=== PATIENT | female | born 1950 | race Caucasian/White ===

== ENCOUNTER 2019-06-26 15:35 | Emergency (ER) | payer BC, MEDICARE ==
[2019-06-26 15:51] VITALS: RESP 18
[2019-06-26] MEDS ORDERED: KETOROLAC 30 MG/ML 1 ML VIAL IM STA (16:49)
--- NOTE | 2019-06-26 17:39 | XR ---
EXAMINATION TYPE: XR knee complete RT DATE OF EXAM: 06/26/2019 COMPARISON: NONE HISTORY: Knee pain TECHNIQUE: 3 views FINDINGS: There is spurring on the superior patella. There is no sign of joint effusion. Joint spaces are fairly normal. IMPRESSION: Mild spurring. No fracture seen.
--- NOTE | 2019-06-26 18:00 | ED ---
General Adult HPI - General Chief complaint: Extremity Injury, Lower Stated complaint: Leg pain Time Seen by Provider: 06/26/19 15:53 Source: patient Mode of arrival: wheelchair Limitations: no limitations - History of Present Illness Initial comments: Patient is 69-year-old female presenting to emergency Department with a chief complaint of right leg pain. Patient reports receiving previous cortisone shots in the right knee due to osteoarthritis. Patient reports the pain started approximately one week ago along the lateral aspect of the right knee and radiates distally to the foot. Patient denies any trauma to the knee. Patient denies any edema, erythema or skin discoloration. Patient denies any numbness or tingling. Patient denies any shortness of breath, nausea, vomiting, headache, chest pain, chest tightness. Patient denies recent prolonged periods of activity, exogenous estrogen use, chemotherapy. - Related Data Previous Rx's Medication Instructions Recorded Acetaminophen [Tylenol Extra 500 mg PO Q8HR #30 tablet 06/26/19 Strength] Ibuprofen [Motrin] 600 mg PO Q8HR PRN #30 tab 06/26/19 Allergies Allergy/AdvReac Type Severity Reaction Status Date / Time No Known Allergies Allergy Verified 06/26/19 15:47 Review of Systems ROS Statement: Those systems with pertinent positive or pertinent negative responses have been documented in the HPI. ROS Other: All systems not noted in ROS Statement are negative. Past Medical History Past Medical History: Thyroid Disorder History of Any Multi-Drug Resistant Organisms: None Reported Past Surgical History: Appendectomy, Hysterectomy, Tonsillectomy Past Psychological History: Depression Smoking Status: Never smoker Past Alcohol Use History: None Reported Past Drug Use History: None Reported General Exam Limitations: no limitations General appearance: alert, in no apparent distress Head exam: Present: atraumatic, normocephalic, normal inspection Eye exam: Present: normal appearance, PERRL, EOMI Pupils: Present: normal accommodation ENT exam: Present: normal exam, mucous membranes moist, normal external ear exam Neck exam: Present: normal inspection, full ROM Respiratory exam: Present: normal lung sounds bilaterally Cardiovascular Exam: Present: regular rate, normal rhythm, normal heart sounds Extremities exam: Present: normal inspection (No skin discoloration or temperature difference noted between bilateral lower shrubberies), tenderness (Tenderness along the medial aspect of the right knee and circumferentially along the right lower leg), calf tenderness (Right), other (+2 dorsalis pedis and posterior tibialis). Absent: full ROM (Limited range of motion in right knee due to pain) Back exam: Present: normal inspection, full ROM Neurological exam: Present: alert, oriented X3 Psychiatric exam: Present: normal affect, normal mood Skin exam: Present: warm, intact, normal color Course Vital Signs 06/26/19 06/26/19 15:47 18:13 Temperature 97.8 F 98.0 F Pulse Rate 69 61 Respiratory 18 18 Rate Blood Pressure 126/74 122/78 O2 Sat by Pulse 99 98 Oximetry Medical Decision Making - Medical Decision Making Patient is a 69-year-old male presenting to emergency Department with chief complaint of right knee pain. Ultrasound is negative for DVT. X-ray showing mild spurring in the right knee. Patient already has osteoarthritis and the symptoms appear to be an exacerbation of it. Patient advised to alternate between Tylenol and ibuprofen for pain control. Patient advised to follow-up with primary care for outpatient management. Strict return parameters were thoroughly discussed the patient was in the setting agreeable. Case discussed with physician. Disposition Clinical Impression: Knee pain, right Disposition: HOME SELF-CARE Condition: Stable Instructions (If sedation given, give patient instructions): Knee Pain (ED) Additional Instructions: Alternate between Tylenol and ibuprofen for pain control. Please follow up with primary care. Please return to emergency department if symptoms worsen. Prescriptions: Ibuprofen [Motrin] 600 mg PO Q8HR PRN #30 tab PRN Reason: Pain Acetaminophen [Tylenol Extra Strength] 500 mg PO Q8HR #30 tablet Is patient prescribed a controlled substance at d/c from ED?: No Referrals: Andrez Dasilva DO [Primary Care Provider] - 1-2 days Time of Disposition: 18:09
--- NOTE | 2019-06-26 18:03 | US ---
EXAMINATION TYPE: US venous doppler duplex LE RT DATE OF EXAM: 06/26/2019 5:54 PM COMPARISON: NONE CLINICAL HISTORY: Pain. leg pain, no swelling, no h/o dvt SIDE PERFORMED: right TECHNIQUE: The lower extremity deep venous system is examined utilizing real time linear array sonog kel with graded compression, doppler sonography and color-flow sonography. VESSELS IMAGED: External Iliac Vein (EIV) Common Femoral Vein Deep Femoral Vein Greater Saphenous Vein * Femoral Vein Popliteal Vein Small Saphenous Vein * Proximal Calf Veins (* superficial vessels) Right Leg: Appears negative for DVT IMPRESSION: No evidence of deep venous thrombosis in the right leg.
[2019-06-26 18:13] VITALS: BP 122/78; PULSE 61; TEMP 98
== END 2019-06-26 18:13 | disposition home or self-care (01) ==
LOC: EC 15:35
DX: M76.891 Other specified enthesopathies of right lower limb, excluding foot (principal); M19.90 Unspecified osteoarthritis, unspecified site
CPT/HCPCS: 73562; 93971; 99284; 96372; J1885

== ENCOUNTER → 2019-09-02 | Outpatient (CLI) | payer BC, MEDICARE ==
--- NOTE | 2019-09-02 14:48 | CT ---
EXAMINATION TYPE: CT abdomen pelvis wo con DATE OF EXAM: 09/02/2019 COMPARISON: None INDICATION: Nausea and vomiting. Patient complains of cyst to abdomen. DLP: 1013 mGycm, Automated exposure control for dose reduction was used. CONTRAST: 0 mL of Isovue 300. Study performed with Oral Contrast TECHNIQUE: Axial images were obtained from above the diaphragm to the pubic rami in the axial plane a t 5 mm thick sections. Reconstructed images are reviewed on the computer in the coronal plane. FINDINGS: Limited CT sections are obtained the lung bases. The lung bases are clear. CT ABDOMEN: Liver: Normal Spleen: Normal Pancreas: Normal Adrenal glands: The adrenal glands are normal. Gallbladder: Normal Kidneys: No masses are evident. No hydronephrosis is present. No cysts are present. No renal stone s are evident. Aorta: Vascular calcification is within the aorta. Inferior vena cava: Normal. CT PELVIS: Loops of bowel within the abdomen and pelvis are normal. There are loops of bowel which are incom pletely distended or lack oral contrast limiting their evaluation. Appendix: Not identified. No suspicious inflammatory changes or dilated tubular structures are eviden t. Urinary bladder: Decompressed limiting evaluation Genitourinary structures: Uterus is not identified. Right ovary is not identified. Left ovary may be present. 1.7 cm. Osseous structures: No suspicious lytic or sclerotic lesions. IMPRESSIONS: 1. Unremarkable noncontrast CT abdomen and pelvis.
== END ==
LOC: RADCTMAIN 11:46
PROVIDERS: ATTEND Family Medicine
DX: R11.10 Vomiting, unspecified (principal)
CPT/HCPCS: 74176; Q9967

== ENCOUNTER 2020-11-01 11:02 | Emergency (ER) | payer BC, MEDICARE ==
[2020-11-01 11:24] VITALS: BP 143/84; PULSE 72; RESP 20; TEMP 98.4
--- NOTE | 2020-11-01 11:40 | ED ---
ENT HPI - General Chief complaint: ENT Stated complaint: cannot hear/right ear Time Seen by Provider: 11/01/20 11:25 Source: patient, RN notes reviewed Mode of arrival: ambulatory Limitations: no limitations - History of Present Illness Initial comments: 70-year-old female presents emergency Department chief complaint of unable to hear out of right ear, infection. Patient was seen by [facility] today and was advised to go to ER doctor for infection of her right ear. Patient states that she thought she had some wax buildup but has not improved with her eardrops and she was noted and no wax on exam today. Patient denies any fevers chills headache dizziness DIFFICULTY BREATHING. - Related Data Previous Rx's Medication Instructions Recorded Acetaminophen [Tylenol Extra 500 mg PO Q8HR #30 tablet 06/26/19 Strength] Ibuprofen [Motrin] 600 mg PO Q8HR PRN #30 tab 06/26/19 Amoxicillin 875 mg PO Q12HR #20 tablet 11/01/20 Allergies Allergy/AdvReac Type Severity Reaction Status Date / Time No Known Allergies Allergy Verified 11/01/20 11:23 Review of Systems ROS Statement: Those systems with pertinent positive or pertinent negative responses have been documented in the HPI. ROS Other: All systems not noted in ROS Statement are negative. Past Medical History Past Medical History: Thyroid Disorder History of Any Multi-Drug Resistant Organisms: None Reported Past Surgical History: Appendectomy, Hysterectomy, Tonsillectomy Past Psychological History: Depression Smoking Status: Never smoker Past Alcohol Use History: None Reported Past Drug Use History: None Reported General Exam Limitations: no limitations General appearance: alert, in no apparent distress Head exam: Present: atraumatic, normocephalic, normal inspection Eye exam: Present: normal appearance, PERRL, EOMI. Absent: scleral icterus, conjunctival injection, periorbital swelling ENT exam: Present: normal oropharynx, mucous membranes moist, normal external ear exam. Absent: TM's normal bilaterally (Mild erythema and fluid noted the right TM, there is no mastoid tenderness) Neck exam: Present: normal inspection, full ROM. Absent: tenderness, meningismus, lymphadenopathy Respiratory exam: Present: normal lung sounds bilaterally. Absent: respiratory distress, wheezes, rales, rhonchi, stridor Cardiovascular Exam: Present: regular rate, normal rhythm, normal heart sounds. Absent: systolic murmur, diastolic murmur, rubs, gallop, clicks Course Vital Signs 11/01/20 11:22 Temperature 98.4 F Pulse Rate 72 Respiratory 20 Rate Blood Pressure 143/84 O2 Sat by Pulse 99 Oximetry Medical Decision Making - Medical Decision Making 70-year-old presented for difficulty hearing. Patient has some mild eustachian tube dysfunction with infection. Patient rested decongestant was started on antibiotics. Return parameters were discussed. Disposition Clinical Impression: Eustachian tube dysfunction, Otitis media Disposition: HOME SELF-CARE Condition: Stable Instructions (If sedation given, give patient instructions): Earache (ED) Additional Instructions: Please return to the Emergency Department if symptoms worsen or any other con cerns. Prescriptions: Amoxicillin 875 mg PO Q12HR #20 tablet Is patient prescribed a controlled substance at d/c from ED?: No Referrals: Andrez Dasilva DO [Primary Care Provider] - 1-2 days Time of Disposition: 11:40
== END 2020-11-01 12:15 | disposition home or self-care (01) ==
LOC: EC 11:02
DX: H66.91 Otitis media, unspecified, right ear (principal); H69.91 Unspecified Eustachian tube disorder, right ear; Z90.49 Acquired absence of other specified parts of digestive tract; Z90.710 Acquired absence of both cervix and uterus
CPT/HCPCS: 99283

== ENCOUNTER 2020-11-21 08:55 | Emergency (ER) | payer BC, MEDICARE ==
[2020-11-21 09:00] VITALS: BP 145/81; PULSE 94; RESP 18; TEMP 98.4
--- NOTE | 2020-11-21 09:14 | ED ---
General Adult HPI - General Chief complaint: ENT Stated complaint: Can't hear out of R ear Time Seen by Provider: 11/21/20 09:00 Source: patient, RN notes reviewed, old records reviewed Mode of arrival: ambulatory Limitations: no limitations - History of Present Illness Initial comments: 70-year-old female presenting with right-sided hearing loss which is been present for greater than 1 month. She was seen previously prescribed antibiotics with only very minimal improvement. She states she can hear just a little out of the right ear has normal hearing in the left ear. She denies head trauma. Denies fever. She's had a mild sore throat which she has attributed to ALLERGIES. Denies any focal numbness or weakness. Denies facial asymmetry. De nies cough or dyspnea. Denies chest pain. - Related Data Previous Rx's Medication Instructions Recorded Acetaminophen [Tylenol Extra 500 mg PO Q8HR #30 tablet 06/26/19 Strength] Ibuprofen [Motrin] 600 mg PO Q8HR PRN #30 tab 06/26/19 Amoxicillin 875 mg PO Q12HR #20 tablet 11/01/20 Amoxicillin/Potassium Clav 1 tab PO Q12HR 10 Days #20 tab 11/21/20 [Augmentin 875-125 Tablet] Fluticasone Nasal [place] [Flonase 1 spray EA NOSTRIL DAILY #1 bottle 11/21/20 Nasal [place]] Loratadine [Claritin] 10 mg PO DAILY 30 Days #30 tab 11/21/20 Allergies Allergy/AdvReac Type Severity Reaction Status Date / Time No Known Allergies Allergy Verified 11/21/20 08:59 Review of Systems ROS Statement: Those systems with pertinent positive or pertinent negative responses have been documented in the HPI. ROS Other: All systems not noted in ROS Statement are negative. Past Medical History Past Medical History: Thyroid Disorder History of Any Multi-Drug Resistant Organisms: None Reported Past Surgical History: Appendectomy, Hysterectomy, Tonsillectomy Past Psychological History: Depression Smoking Status: Never smoker Past Alcohol Use History: None Reported Past Drug Use History: None Reported General Exam Limitations: no limitations Head exam: Present: atraumatic, normocephalic Eye exam: Present: normal appearance, PERRL ENT exam: Present: mucous membranes moist. Absent: normal oropharynx (The posterior oropharynx is not well visualized), TM's normal bilaterally (Right tympanic membrane, there is a effusion, minimal erythema no bulging. Left tympanic membrane is within normal limits.) Neck exam: Present: normal inspection. Absent: tenderness Respiratory exam: Present: normal lung sounds bilaterally. Absent: respiratory distress, wheezes Cardiovascular Exam: Present: regular rate, normal rhythm GI/Abdominal exam: Present: soft. Absent: distended, tenderness, guarding Extremities exam: Present: normal inspection, normal capillary refill Neurological exam: Present: alert, oriented X3, CN II-XII intact, other (No ataxia, 5 out of 5 strength throughout, normal facial symmetry). Absent: motor sensory deficit Psychiatric exam: Present: normal affect, normal mood Skin exam: Present: warm, dry, intact, other (No erythema, no tenderness or induration over the right mastoid) Course Vital Signs 11/21/20 08:55 Temperature 98.4 F Pulse Rate 94 Respiratory 18 Rate Blood Pressure 145/81 O2 Sat by Pulse 97 Oximetry Medical Decision Making - Medical Decision Making 62-year-old female with greater than 1 month of hearing loss in the right ear. She does have an effusion in this year. Otherwise she is well-appearing. I recommend the patient follow up with ENT for further evaluation and treatment given the duration of this hearing loss. At the meantime patient will be prescribed antibiotics, Claritin, Flonase. Disposition Clinical Impression: Acute effusion of right ear, Hearing loss Disposition: HOME SELF-CARE Condition: Fair Instructions (If sedation given, give patient instructions): Hearing Loss (ED), Serous Otitis Media (ED) Prescriptions: Amoxicillin/Potassium Clav [Augmentin 875-125 Tablet] 1 tab PO Q12HR 10 Days #20 tab Loratadine [Claritin] 10 mg PO DAILY 30 Days #30 tab Fluticasone Nasal [place] [Flonase Nasal [place]] 1 spray EA NOSTRIL DAILY #1 bottle Is patient prescribed a controlled substance at d/c from ED?: No Referrals: Andrez Dasilva DO [Primary Care Provider] - 1-2 days David Martin MD [STAFF PHYSICIAN] - 1-2 days Time of Disposition: 09:13
== END 2020-11-21 09:27 | disposition home or self-care (01) ==
LOC: EC 08:55
DX: H91.91 Unspecified hearing loss, right ear (principal); H65.191 Other acute nonsuppurative otitis media, right ear
CPT/HCPCS: 99283

== ENCOUNTER → 2021-02-09 | Outpatient (CLI) | payer BC, MEDICARE ==
[2021-02-09 21:18] LABS: African American GFR (CKD) 87.8 (60.0-200.0); Non-African American GFR(CKD) 75.8 (60.0-200.0)
[2021-02-09 21:26] LABS: T4, Free (Free Thyroxine) 1.1 ng/dL (0.80-1.80)
== END | disposition home or self-care (01) ==
LOC: LABWHC1 10:17
PROVIDERS: ATTEND Nurse Practitioner Family
DX: H91.21 Sudden idiopathic hearing loss, right ear (principal)
CPT/HCPCS: 36415; 82565; 84439; 84443; 84520; 86038; 86769

== ENCOUNTER → 2021-02-22 | Outpatient (CLI) | payer BC, MEDICARE ==
--- NOTE | 2021-02-22 15:54 | MR ---
EXAMINATION TYPE: MR brain and iac wo con DATE OF EXAM: 02/22/2021 COMPARISON: NONE HISTORY: Right sided hearing loss with progressive otalgia. TECHNIQUE: Multiplanar, multisequence imaging of the brain and brainstem is performed without IV cont rast. Acoustic nerve disorder protocol. Examination was suboptimal as patient was unable to complete the entire acoustic nerve disorder protocol and could not complete postcontrast imaging evaluation. FINDINGS: Diffusion weighted images demonstrate no evidence of a recent infarct or other diffusion abnormality. There is mild ventricular and sulcal prominence. Some scattered areas of T2 hyperintensity are seen t hroughout the deep and periventricular white matter bilaterally. Midline structures demonstrate normal morphology. The craniocervical junction appears within normal limits. Normal vascular flow voids are present. The visualized sinuses are clear and the globes are i ntact. No suspicious opacification of the mastoid air cells bilaterally. The vestibulocochlear complexes truong ear symmetric and within normal limits on noncontrast T2 axial images. IMPRESSION: Suboptimal study. Mild diffuse cerebral atrophy and chronic small vessel ischemic changes .
== END | disposition home or self-care (01) ==
LOC: RADMRIMAIN 12:57
PROVIDERS: ATTEND Nurse Practitioner Family
DX: I67.82 Cerebral ischemia (principal); G31.9 Degenerative disease of nervous system, unspecified
CPT/HCPCS: 70551

== ENCOUNTER 2022-11-15 09:55 | Emergency (ER) | payer MEDICARE, BC ==
[2022-11-15 10:21] VITALS: RESP 18; TEMP 98.7
--- NOTE | 2022-11-15 11:03 | ED ---
Dizziness HPI - General Chief Complaint: Dizziness Stated Complaint: dizziness Source: patient Mode of arrival: ambulatory Limitations: no limitations - History of Present Illness Initial Comments: Patient is a 72-year-old female presenting with chief complaint of dizziness. Patient states that last night on the news she saw that she has vertigo. Patient has had fluid in her ears for years, particularly the right ear. She admits to pressure in the right ear. She frequently uses Q-tips which causes soreness to try to help alleviate the pressure and fluid in the ear. She admits to dizziness with moving her head. Patient states that she has been kicked out of multiple doctors offices and does not have a PCP at this time. She denies any chest pain, difficulty breathing, palpitations, weakness, abdominal pain, vomiting, cough, congestion, sore throat, fever, chills. - Related Data Home Medications Medication Instructions Recorded Confirmed Latanoprost [Xalatan 0.005%] 1 drop BOTH EYES HS 11/19/21 11/15/22 Previous Rx's Medication Instructions Recorded Cephalexin [Keflex] 500 mg PO Q12HR 7 Days #14 cap 11/15/22 Allergies Allergy/AdvReac Type Severity Reaction Status Date / Time fluoxetine [From Prozac] AdvReac Nausea & Verified 11/15/22 14:25 Vomiting & Diarrhea Review of Systems ROS Statement: Those systems with pertinent positive or pertinent negative responses have been documented in the HPI. ROS Other: All systems not noted in ROS Statement are negative. Past Medical History Past Medical History: Thyroid Disorder History of Any Multi-Drug Resistant Organisms: None Reported Past Surgical History: Appendectomy, Hysterectomy, Tonsillectomy Past Psychological History: Depression Smoking Status: Never smoker Past Alcohol Use History: None Reported Past Drug Use History: None Reported General Exam Limitations: no limitations General appearance: alert, in no apparent distress Head exam: Present: atraumatic, normocephalic, normal inspection Eye exam: Present: normal appearance ENT exam: Present: normal exam, TM's normal bilaterally Neck exam: Present: normal inspection, full ROM Respiratory exam: Present: normal lung sounds bilaterally. Absent: respiratory distress, wheezes, rales, rhonchi, stridor Cardiovascular Exam: Present: regular rate, normal rhythm, normal heart sounds. Absent: systolic murmur, diastolic murmur, rubs, gallop, clicks Neurological exam: Present: alert, oriented X3, CN II-XII intact Expanded Patient oriented to: Present: person, place, time Speech: Present: fluid speech Cranial nerves: EOM's Intact: Normal Sensory exam: Upper Extremity Light Touch: Normal, Lower Extremity Light Touch: Normal Motor strength exam: RUE: 5, LUE: 5, RLE: 5, LLE: 5 Eye Response: (4) open spontaneously Motor Response: (6) obeys commands Verbal Response: (5) oriented Dana Total: 15 Psychiatric exam: Present: normal affect, normal mood Skin exam: Present: warm, dry, intact, normal color. Absent: rash Course Vital Signs 11/15/22 11/15/22 11/15/22 10:18 13:33 15:48 Temperature 98.7 F Pulse Rate 78 74 79 Respiratory 18 18 Rate Blood Pressure 160/97 128/84 130/80 O2 Sat by Pulse 96 97 98 Oximetry EKG Findings - EKG Comments: EKG Findings:: Sinus rhythm ventricular rate 76. RI interval 164. QRS 120. QTC 410. QTC 440. Left axis deviation. EKG interpreted by myself as well as by attending Medical Decision Making - Medical Decision Making Was pt. sent in by a medical professional or institution (, PA, [facility], urgent care, hospital, or retirement...) When possible be specific @ -[No] Did you speak to anyone other than the patient for history (EMS, parent, family, police, friend...)? What history was obtained from this source @ -[No] Did you review nursing and triage notes (agree or disagree)? Why? @ -[I reviewed and agree with nursing and triage notes] Were old charts reviewed (outside hosp., previous admission, EMS record, old EKG, old radiological studies, urgent care reports/EKG's, retirement records)? Report findings @ -[No old charts were reviewed] Differential Diagnosis (chest pain, altered mental status, abdominal pain women, abdominal pain men, vaginal bleeding, weakness, fever, dyspnea, syncope, headache, dizziness, GI bleed, back pain, seizure, CVA, palpatations, mental health)? @ -MDM Differential Dizziness: Benign paroxysmal positional Vertigo, Menieres disease, otitis media, hypovolemic, arrhythmia, anemia this is not meant to be an all-inclusive list EKG interpreted by me (3pts min.). @ -Yes, see chart X-rays interpreted by me (1pt min.). @ Radiologist's report reviewed, there is prominent right perihilar lung markings was suggested right mid to lower lung nodule CT interpreted by me (1pt min.). @ -[None done] U/S interpreted by me (1pt. min.). @ -[None done] What testing was considered but not performed or refused? (CT, X-rays, U/S, labs)? Why? @ -[None] What meds were considered but not given or refused? Why? @ -[None] Did you discuss the management of the patient with other professionals (professionals i.e. , PA, [facility], lab, RT, psych nurse, forensic social worker, machine binder stripper, teacher, chief green officer, medical case manager)? Give summary @ -[No] Was smoking cessation discussed for >3mins.? @ -[No] Was critical care preformed (if so, how long)? @ -[No] Were there social determinants of health that impacted care today? How? (Homelessness, low income, unemployed, alcoholism, drug addiction, transportation, low edu. Level, literacy, decrease access to med. care, retirement, rehab)? @ -[No] Was there de-escalation of care discussed even if they declined (Discuss DNR or withdrawal of care, Hospice)? DNR status @ -[No] What co-morbidities impacted this encounter? (DM, HTN, Smoking, COPD, CAD, Cancer, CVA, ARF, Chemo, Hep., AIDS, mental health diagnosis, sleep apnea, morbid obesity)? @ -[None] Was patient admitted / discharged? Hospital course, mention meds given and route, prescriptions, significant lab abnormalities, going to OR and other pertinent info. @ -Patient is a 9-year-old female presenting with chief complaint of dizziness. Patient states that she has had dizziness for 2 years as well as fluid in the right ear. Patient saw on television last night a segment about vertigo and wants to be evaluated for vertigo. Vital signs are WNL. Physical examination is unremarkable. There is some mild fluid in the right ear. No focal neurological deficits. EKG shows sinus rhythm. Lab work shows mild tra nsaminitis, otherwise unremarkable. Urine shows evidence of UTI, given dose of Rocephin here and will be treated with Keflex outpatient. Urine toxicology is negative. Chest x-ray shows pulmonary nodule, otherwise negative. Patient responded well to meclizine. Symptoms are likely due to BPPV. Instructed to follow-up with ENT. Follow-up with PCP. Report back to ER with any new or worsening symptoms. Discussed return parameters and answered all questions. Patient conveyed verbal understanding and agreed to the plan. I discussed this case in detail with my attending Dr. Fairbanks Undiagnosed new problem with uncertain prognosis? @ -[No] Drug Therapy requiring intensive monitoring for toxicity (Heparin, Nitro, Insul in, Cardizem)? @ -[No] Were any procedures done? @ -[No] Diagnosis/symptom? @ -BPPV Acute, or Chronic, or Acute on Chronic? @ -Chronic Uncomplicated (without systemic symptoms) or Complicated (systemic symptoms)? @ -Uncomplicated Side effects of treatment? @ -[No] Exacerbation, Progression, or Severe Exacerbation? @ -[No] Poses a threat to life or bodily function? How? (Chest pain, [place], [place], pneumonia, PE, COPD, DKA, ARF, appy, cholecystitis, CVA, Diverticulitis, Homicidal, Suicidal, threat to staff... and all critical care pts) @ -[No] - Lab Data Result diagrams: 11/15/22 13:26 11/15/22 13:26 Lab Results 11/15/22 11/15/22 11/15/22 Range/Units 13:26 13:26 13:26 WBC 6.4 (3.8-10.6) k/uL RBC 5.37 (3.80-5.40) m/uL Hgb 16.5 H (11.4-16.0) gm/dL Hct 47.5 H (34.0-46.0) % MCV 88.5 (80.0-100.0) fL MCH 30.7 (25.0-35.0) pg MCHC 34.6 (31.0-37.0) g/dL RDW 12.9 (11.5-15.5) % Plt Count 216 (150-450) k/uL MPV 8.4 Neutrophils % 49 % Lymphocytes % 39 % Monocytes % 6 % Eosinophils % 3 % Basophils % 1 % Neutrophils # 3.1 (1.3-7.7) k/uL Lymphocytes # 2.5 (1.0-4.8) k/uL Monocytes # 0.4 (0-1.0) k/uL Eosinophils # 0.2 (0-0.7) k/uL Basophils # 0.1 (0-0.2) k/uL PT 10.1 (9.0-12.0) sec INR 1.0 (<1.2) Sodium 141 (137-145) mmol/L Potassium 3.9 (3.5-5.1) mmol/L Chloride 105 (98-107) mmol/L Carbon Dioxide 29 (22-30) mmol/L Anion Gap 7 mmol/L BUN 14 (7-17) mg/dL Creatinine 0.63 (0.52-1.04) mg/dL Est GFR (CKD-EPI)AfAm >90 (>60 ml/min/1.73 sqM) Est GFR (CKD-EPI)NonAf >90 (>60 ml/min/1.73 sqM) Glucose 110 H (74-99) mg/dL Calcium 9.3 (8.4-10.2) mg/dL Total Bilirubin 0.6 (0.2-1.3) mg/dL AST 53 H (14-36) U/L ALT 50 H (4-34) U/L Alkaline Phosphatase 116 (38-126) U/L Total Protein 7.1 (6.3-8.2) g/dL Albumin 4.1 (3.5-5.0) g/dL Urine Color Urine Appearance (Clear) Urine pH (5.0-8.0) Ur Specific [place] (1.001-1.035) Urine Protein (Negative) Urine Glucose (UA) (Negative) Urine Ketones (Negative) Urine Blood (Negative) Urine Nitrite (Negative) Urine Bilirubin (Negative) Urine Urobilinogen (<2.0) mg/dL Ur Leukocyte Esterase (Negative) Urine WBC (0-5) /hpf Ur Squamous Epith Cells (0-4) /hpf Calcium Oxalate Crystal (None) /hpf Urine Bacteria (None) /hpf Urine Mucus (None) /hpf Urine Opiates Screen (NotDetected) Ur Oxycodone Screen (NotDetected) Urine Methadone Screen (NotDetected) Ur Propoxyphene Screen (NotDetected) Ur Barbiturates Screen (NotDetected) U Tricyclic Antidepress (NotDetected) Ur Phencyclidine Scrn (NotDetected) Ur Amphetamines Screen (NotDetected) U Methamphetamines Scrn (NotDetected) U Benzodiazepines Scrn (NotDetected) Urine Cocaine Screen (NotDetected) U Marijuana (THC) Screen (NotDetected) 11/15/22 Range/Units 13:26 WBC (3.8-10.6) k/uL RBC (3.80-5.40) m/uL Hgb (11.4-16.0) gm/dL Hct (34.0-46.0) % MCV (80.0-100.0) fL MCH (25.0-35.0) pg MCHC (31.0-37.0) g/dL RDW (11.5-15.5) % Plt Count (150-450) k/uL MPV Neutrophils % % Lymphocytes % % Monocytes % % Eosinophils % % Basophils % % Neutrophils # (1.3-7.7) k/uL Lymphocytes # (1.0-4.8) k/uL Monocytes # (0-1.0) k/uL Eosinophils # (0-0.7) k/uL Basophils # (0-0.2) k/uL PT (9.0-12.0) sec INR (<1.2) Sodium (137-145) mmol/L Potassium (3.5-5.1) mmol/L Chloride (98-107) mmol/L Carbon Dioxide (22-30) mmol/L Anion Gap mmol/L BUN (7-17) mg/dL Creatinine (0.52-1.04) mg/dL Est GFR (CKD-EPI)AfAm (>60 ml/min/1.73 sqM) Est GFR (CKD-EPI)NonAf (>60 ml/min/1.73 sqM) Glucose (74-99) mg/dL Calcium (8.4-10.2) mg/dL Total Bilirubin (0.2-1.3) mg/dL AST (14-36) U/L ALT (4-34) U/L Alkaline Phosphatase (38-126) U/L Total Protein (6.3-8.2) g/dL Albumin (3.5-5.0) g/dL Urine Color Yellow Urine Appearance Cloudy H (Clear) Urine pH 5.0 (5.0-8.0) Ur Specific [place] 1.026 (1.001-1.035) Urine Protein Trace H (Negative) Urine Glucose (UA) Negative (Negative) Urine Ketones Negative (Negative) Urine Blood Negative (Negative) Urine Nitrite Positive H (Negative) Urine Bilirubin Negative (Negative) Urine Urobilinogen <2.0 (<2.0) mg/dL Ur Leukocyte Esterase Small H (Negative) Urine WBC 10 H (0-5) /hpf Ur Squamous Epith Cells 2 (0-4) /hpf Calcium Oxalate Crystal Many H (None) /hpf Urine Bacteria Many H (None) /hpf Urine Mucus Many H (None) /hpf Urine Opiates Screen Not Detected (NotDetected) Ur Oxycodone Screen Not Detected (NotDetected) Urine Methadone Screen Not Detected (NotDetected) Ur Propoxyphene Screen Not Detected (NotDetected) Ur Barbiturates Screen Not Detected (NotDetected) U Tricyclic Antidepress Not Detected (NotDetected) Ur Phencyclidine Scrn Not Detected (NotDetected) Ur Amphetamines Screen Not Detected (NotDetected) U Methamphetamines Scrn Not Detected (NotDetected) U Benzodiazepines Scrn Not Detected (NotDetected) Urine Cocaine Screen Not Detected (NotDetected) U Marijuana (THC) Screen Not Detected (NotDetected) Disposition Clinical Impression: BPPV (benign paroxysmal positional vertigo) Disposition: HOME SELF-CARE Condition: Good Instructions (If sedation given, give patient instructions): Dizziness (ED) Additional Instructions: Follow up with PCP regarding dizziness and lungs nodule seen on chest x-ray today. Report back to ER with any new or worsening symptoms. Follow-up with ENT. Take medication as prescribed. Prescriptions: Cephalexin [Keflex] 500 mg PO Q12HR 7 Days #14 cap Is patient prescribed a controlled substance at d/c from ED?: No Referrals: None,Stated [Primary Care Provider] [facility]2 days Adolfo Mccarty MD [STAFF PHYSICIAN] - 1-2 days Time of Disposition: 15:30
[2022-11-15] MEDS ORDERED: MECLIZINE 12.5 MG TAB PO STA (12:26)
--- NOTE | 2022-11-15 13:48 | XR ---
EXAMINATION TYPE: XR chest 2V DATE OF EXAM: 11/15/2022 1:42 PM COMPARISON: None TECHNIQUE: XR chest 2V Frontal and lateral views of the chest. CLINICAL INDICATION:Female, 72 years old with history of dizziness; FINDINGS: Lungs/Pleura: No pleural effusion or pneumothorax. Prominent right perihilar lung markings with sugge sted right mid to lower lung 8 mm nodule. Pulmonary vascularity: Unremarkable. Heart/mediastinum: Cardiomediastinal silhouette is unremarkable. Musculoskeletal: No acute osseous pathology. IMPRESSION: Prominent right perihilar lung markings with suggested right mid to lower lung nodule. Further evalua tion with CT chest is recommended.
[2022-11-15 14:01] LABS: Basophils # (A) 0.1 k/uL (0-0.2); Basophils % (A) 1 %; Eosinophils # (A) 0.2 k/uL (0-0.7); Eosinophils % (A) 3 %; HCT 47.5 % (34.0-46.0); HGB 16.5 gm/dL (11.4-16.0); Lymphocytes # (A) 2.5 k/uL (1.0-4.8); Lymphocytes % (A) 39 %; MCH 30.7 pg (25.0-35.0); MCHC 34.6 g/dL (31.0-37.0); MCV 88.5 fL (80.0-100.0); Mean Platelet Volume 8.4; Monocytes # (A) 0.4 k/uL (0-1.0); Monocytes % (A) 6 %; Neutrophils # (A) 3.1 k/uL (1.3-7.7); Neutrophils % (A) 49 %; Platelet Count 216 k/uL (150-450); RBC 5.37 m/uL (3.80-5.40); RDW 12.9 % (11.5-15.5); WBC 6.4 k/uL (3.8-10.6)
[2022-11-15 14:07] LABS: Prothrombin Time 10.1 sec (9.0-12.0)
[2022-11-15 14:11] LABS: Appearance,Urine Cloudy (Clear); Bacteria,Urine Many /hpf; Bilirubin,Urine Negative (Negative); Blood,Urine Negative (Negative); Calcium Oxalate Crystals,Urine Many /hpf; Color,Urine Yellow; Glucose,Urine (UA) Negative (Negative); Ketones,Urine Negative (Negative); Leukocyte Esterase,Urine Small (Negative); Mucus,Urine Many /hpf; Nitrite,Urine Positive (Negative); Protein,Urine Trace (Negative); Specific Gravity,Urine 1.026 (1.001-1.035); Squamous Epithelial Cell,Urine 2 /hpf (0-4); Urobilinogen,Urine <2.0 mg/dL (<2.0); WBC,Urine 10 /hpf (0-5)
[2022-11-15 14:13] LABS: ALT 50 U/L (4-34); AST 53 U/L (14-36); African American GFR (CKD) >90 (>60 ml/min/1.73 sqM); Albumin 4.1 g/dL (3.5-5.0); Alkaline Phosphatase 116 U/L (38-126); Anion Gap 7 mmol/L; Blood Urea Nitrogen 14 mg/dL (7-17); Calcium 9.3 mg/dL (8.4-10.2); Carbon Dioxide 29 mmol/L (22-30); Chloride 105 mmol/L (98-107); Glucose 110 mg/dL (74-99); Non-African American GFR(CKD) >90 (>60 ml/min/1.73 sqM); Potassium 3.9 mmol/L (3.5-5.1); Sodium 141 mmol/L (137-145); Total Bilirubin 0.6 mg/dL (0.2-1.3); Total Protein 7.1 g/dL (6.3-8.2)
[2022-11-15 14:21] LABS: Amphetamine Screen,Urine Not Detected (NotDetected); Barbiturate Screen,Urine Not Detected (NotDetected); Benzodiazepines Screen,Urine Not Detected (NotDetected); Cocaine Screen,Urine Not Detected (NotDetected); Methadone Screen, Urine Not Detected (NotDetected); Opiate Screen,Urine Not Detected (NotDetected); Oxycodone Screen, Urine Not Detected (NotDetected); Phencyclidine Screen,Urine Not Detected (NotDetected); Tricyclic Antidepressant,Urine Not Detected (NotDetected); Urn Cannabinoid Scrn Not Detected (NotDetected)
[2022-11-15] MEDS ORDERED: cefTRIAXone IN SWFI 1,000 MG/10 ML SYRINGE IVP STA (15:27)
[2022-11-15 15:48] VITALS: BP 130/80; PULSE 79
== END 2022-11-15 15:49 | disposition home or self-care (01) ==
LOC: EC 09:55
DX: H81.10 Benign paroxysmal vertigo, unspecified ear (principal); F32.A Depression, unspecified; Z88.8 Allergy status to other drugs, medicaments and biological substances
CPT/HCPCS: 36415; 93005; 80053; 85025; 85610; 81001; 80306; 71046; 99284; 96374; J0696

== ENCOUNTER 2022-11-27 09:53 | Emergency (ER) | payer MEDICARE, BC ==
[2022-11-27 09:59] VITALS: BP 152/82; PULSE 77; RESP 18; TEMP 98
[2022-11-27 10:39] LABS: Appearance,Urine Clear (Clear); Bilirubin,Urine Negative (Negative); Blood,Urine Negative (Negative); Color,Urine Yellow; Glucose,Urine (UA) 4+ (Negative); Ketones,Urine Trace (Negative); Leukocyte Esterase,Urine Trace (Negative); Mucus,Urine Rare /hpf; Nitrite,Urine Negative (Negative); PH, Urine 5.5 (5.0-8.0); Protein,Urine Negative (Negative); RBC,Urine 2 /hpf (0-5); Specific Gravity,Urine 1.029 (1.001-1.035); Squamous Epithelial Cell,Urine 1 /hpf (0-4); Urobilinogen,Urine <2.0 mg/dL (<2.0); WBC,Urine 6 /hpf (0-5)
--- NOTE | 2022-11-27 10:51 | ED ---
Female Urogenital HPI - General Chief complaint: Urogenital Stated complaint: possible UTI Time Seen by Provider: 11/27/22 10:02 Source: patient Mode of arrival: ambulatory Limitations: no limitations - History of Present Illness Initial comments: Patient is a 72-year-old male who presents for evaluation of possible urinary tract infection. Patient was recently evaluated in our emergency department for vertigo. At this time she was found to have a urinary tract infection. She was treated with Keflex. States she wants to make sure the infection is gone. She is asymptomatic, no burning with urination, increased urinary frequency, increased urinary urgency, fever, chills, abdominal pain, nausea, vomiting. - Related Data Home Medications Medication Instructions Recorded Confirmed Latanoprost [Xalatan 0.005%] 1 drop BOTH EYES HS 11/19/21 11/15/22 Previous Rx's Medication Instructions Recorded Cephalexin [Keflex] 500 mg PO Q12HR 7 Days #14 cap 11/15/22 Allergies Allergy/AdvReac Type Severity Reaction Status Date / Time fluoxetine [From Prozac] AdvReac Nausea & Verified 11/27/22 09:59 Vomiting & Diarrhea Review of Systems ROS Statement: Those systems with pertinent positive or pertinent negative responses have been documented in the HPI. ROS Other: All systems not noted in ROS Statement are negative. Past Medical History Past Medical History: Thyroid Disorder History of Any Multi-Drug Resistant Organisms: None Reported Past Surgical History: Appendectomy, Hysterectomy, Tonsillectomy Past Psychological History: Depression Smoking Status: Never smoker Past Alcohol Use History: None Reported Past Drug Use History: None Reported General Exam Limitations: no limitations General appearance: alert, in no apparent distress Head exam: Present: atraumatic, normocephalic, normal inspection Respiratory exam: Present: normal lung sounds bilaterally. Absent: respiratory distress, wheezes, rales, rhonchi, stridor Cardiovascular Exam: Present: regular rate, normal rhythm, normal heart sounds. Absent: systolic murmur, diastolic murmur, rubs, gallop, clicks GI/Abdominal exam: Present: soft, normal bowel sounds. Absent: distended, tenderness, guarding, rebound, rigid Neurological exam: Present: alert, oriented X3, CN II-XII intact Psychiatric exam: Present: normal affect, normal mood Skin exam: Present: warm, dry, intact, normal color. Absent: rash Course Vital Signs 11/27/22 09:57 Temperature 98 F Pulse Rate 77 Respiratory 18 Rate Blood Pressure 152/82 O2 Sat by Pulse 97 Oximetry Medical Decision Making - Medical Decision Making Was pt. sent in by a medical professional or institution (SANTOS Zamudio, MEDICAL PRACTICE MANAGER, urgent care, hospital, or penitentiary...) When possible be specific @ -[No] Did you speak to anyone other than the patient for history (EMS, parent, family, police, friend...)? What history was obtained from this source @ -[No] Did you review nursing and triage notes (agree or disagree)? Why? @ -[I reviewed and agree with nursing and triage notes] Were old charts reviewed (outside hosp., previous admission, EMS record, old EKG, old radiological studies, urgent care reports/EKG's, penitentiary records)? Report findings @ -[No old charts were reviewed] Differential Diagnosis (chest pain, altered mental status, abdominal pain women, abdominal pain men, vaginal bleeding, weakness, fever, dyspnea, syncope, headache, dizziness, GI bleed, back pain, seizure, CVA, palpatations, mental health)? @ UTI, STI, candiasis vulvovaginitis EKG interpreted by me (3pts min.). @ -[As above] X-rays interpreted by me (1pt min.). @ -[None done] CT interpreted by me (1pt min.). @ -[None done] U/S interpreted by me (1pt. min.). @ -[None done] What testing was considered but not performed or refused? (CT, X-rays, U/S, labs)? Why? @ -[None] What meds were considered but not given or refused? Why? @ -[None] Did you discuss the management of the patient with other professionals (professionals i.e. SANTOS Zamudio, MEDICAL PRACTICE MANAGER, lab, RT, psych nurse, manager social responsibility, office equipment mechanic, teacher, motorized squad commanding officer, welfare case worker)? Give summary @ -[No] Was smoking cessation discussed for >3mins.? @ -[No] Was critical care preformed (if so, how long)? @ -[No] Were there social determinants of health that impacted care today? How? (Homelessness, low income, unemployed, alcoholism, drug addiction, transportation, low edu. Level, literacy, decrease access to med. care, usp, rehab)? @ -[No] Was there de-escalation of care discussed even if they declined (Discuss DNR or withdrawal of care, Hospice)? DNR status @ -[No] What co-morbidities impacted this encounter? (DM, HTN, Smoking, COPD, CAD, Cancer, CVA, ARF, Chemo, Hep., AIDS, mental health diagnosis, sleep apnea, morbid obesity)? @ -[None] Was patient admitted / discharged? Hospital course, mention meds given and route, prescriptions, significant lab abnormalities, going to OR and other pertinent info. @ -This is a 72-year-old presenting for evaluation of possible urinary tract infection. She is asymptomatic. Urinalysis does not reveal infection however there is glucose and ketones in the urine. Patient denies history of diabetes. Last visit her glucose was 110. Patient will be discharged with instruction to follow up with PCP for repeat urinalysis and labs Undiagnosed new problem with uncertain prognosis? @ -[No] Drug Therapy requiring intensive monitoring for toxicity (Heparin, Nitro, Insulin, Cardizem)? @ -[No] Were any procedures done? @ -[No] Diagnosis/symptom? @ -glucosuria Acute, or Chronic, or Acute on Chronic? @ -acute Uncomplicated (without systemic symptoms) or Complicated (systemic symptoms)? @ -uncomplicated Side effects of treatment? @ -[No] Exacerbation, Progression, or Severe Exacerbation? @ -[No] Poses a threat to life or bodily function? How? (Chest pain, [place], [place], pneumonia, PE, COPD, DKA, ARF, appy, cholecystitis, CVA, Diverticulitis, Homicidal, Suicidal, threat to staff... and all critical care pts) @ -[No] Dr. Sow is my attending - Lab Data Lab Results 11/27/22 Range/Units 10:18 Urine Color Yellow Urine Appearance Clear (Clear) Urine pH 5.5 (5.0-8.0) Ur Specific [place] 1.029 (1.001-1.035) Urine Protein Negative (Negative) Urine Glucose (UA) 4+ H (Negative) Urine Ketones Trace H (Negative) Urine Blood Negative (Negative) Urine Nitrite Negative (Negative) Urine Bilirubin Negative (Negative) Urine Urobilinogen <2.0 (<2.0) mg/dL Ur Leukocyte Esterase Trace H (Negative) Urine RBC 2 (0-5) /hpf Urine WBC 6 H (0-5) /hpf Ur Squamous Epith Cells 1 (0-4) /hpf Urine Mucus Rare H (None) /hpf Disposition Clinical Impression: Glycosuria, Ketonuria Disposition: HOME SELF-CARE Condition: Good Instructions (If sedation given, give patient instructions): Type 2 Diabetes in Adults: New Diagnosis (DC) Additional Instructions: Please follow up with primary care provider for repeat urinalysis and further laboratory studies as there was glucose and ketones in you urine today. This could reflect diabetes mellitus. Return to the emergency department if you experience new, concerning, or worsening symptoms. Is patient prescribed a controlled substance at d/c from ED?: No Referrals: None,Stated [Primary Care Provider] - 1-2 days
== END 2022-11-27 11:20 | disposition home or self-care (01) ==
LOC: EC 09:53
DX: R81 Glycosuria (principal); R82.4 Acetonuria; F32.A Depression, unspecified; Z88.8 Allergy status to other drugs, medicaments and biological substances
CPT/HCPCS: 81001; 99283

== ENCOUNTER 2023-08-24 14:24 | Emergency (ER) | payer BC, MEDICARE ==
[2023-08-24] MEDS ORDERED: MECLIZINE 12.5 MG TAB PO STA (15:10)
[2023-08-24] MEDS ORDERED: ONDANSETRON ODT 4 MG TAB PO STA (15:10)
[2023-08-24] MEDS ORDERED: SODIUM CHLORIDE 0.9% 1,000 ML IV ONE (15:12)
[2023-08-24 16:36] LABS: Basophils % (A) 0 %; Eosinophils # (A) 0.1 k/uL (0-0.7); Eosinophils % (A) 1 %; HCT 49.8 % (34.0-46.0); HGB 17.2 gm/dL (11.4-16.0); Lymphocytes % (A) 21 %; MCH 31.1 pg (25.0-35.0); MCHC 34.6 g/dL (31.0-37.0); Mean Platelet Volume 8.2; Monocytes # (A) 0.4 k/uL (0-1.0); Monocytes % (A) 5 %; Neutrophils % (A) 72 %; Platelet Count 212 k/uL (150-450); RBC 5.53 m/uL (3.80-5.40); RDW 12.9 % (11.5-15.5); WBC 9.7 k/uL (3.8-10.6)
--- NOTE | 2023-08-24 16:40 | ED ---
General Adult HPI - General Chief complaint: Dizziness Stated complaint: DIZZINESS Time Seen by Provider: 08/24/23 14:36 Source: EMS Mode of arrival: EMS Limitations: no limitations - History of Present Illness Initial comments: 73-year-old female presents to the emergency department from urgent care. States that she went into urgent care because she was having an exacerbation of her vertigo. States that she has chronic vertigo. She is normally able to take her motion sickness medications and had improvement in her symptoms. States that she did not have any of the motion sickness medication at home and therefore went into urgent care to be treated. They found that her glucose was high and therefore recommended that she be transported to the hospital for further evaluation. Patient denies a history of diabetes. She currently only takes 2 medications which are for her eyesight. States she currently does not have a primary care doctor. She denies any headaches or visual changes. States that her vertigo is improved from when she woke up this morning. She denies any nausea or vomiting. No unilateral numbness or weakness. Has chronic hearing loss in her right ear. She denies any chest pain or shortness of breath. No abdominal pain. No other alleviating, nurse consultant modifying factors - Related Data Home Medications Medication Instructions Recorded Confirmed Latanoprost [Xalatan 0.005%] 1 drop BOTH EYES HS 11/19/21 11/15/22 Previous Rx's Medication Instructions Recorded Cephalexin [Keflex] 500 mg PO Q12HR 7 Days #14 cap 11/15/22 metFORMIN HCL [Glucophage] 500 mg PO BID #60 tab 08/24/23 Allergies Allergy/AdvReac Type Severity Reaction Status Date / Time fluoxetine [From Prozac] AdvReac Nausea & Verified 11/27/22 09:59 Vomiting & Diarrhea Review of Systems ROS Statement: Those systems with pertinent positive or pertinent negative responses have been documented in the HPI. ROS Other: All systems not noted in ROS Statement are negative. Past Medical History Past Medical History: Thyroid Disorder History of Any Multi-Drug Resistant Organisms: None Reported Past Surgical History: Appendectomy, Hysterectomy, Tonsillectomy Past Psychological History: Depression Smoking Status: Never smoker Past Alcohol Use History: None Reported Past Drug Use History: None Reported General Exam Limitations: no limitations General appearance: alert, in no apparent distress Head exam: Present: atraumatic, normocephalic, normal inspection Eye exam: Present: normal appearance, PERRL, EOMI. Absent: scleral icterus, conjunctival injection, periorbital swelling ENT exam: Present: normal exam, mucous membranes moist Neck exam: Present: normal inspection. Absent: tenderness, meningismus, lymphadenopathy Respiratory exam: Present: normal lung sounds bilaterally. Absent: respiratory distress, wheezes, rales, rhonchi, stridor Cardiovascular Exam: Present: regular rate, normal rhythm, normal heart sounds. Absent: systolic murmur, diastolic murmur, rubs, gallop, clicks GI/Abdominal exam: Present: soft, normal bowel sounds. Absent: distended, tenderness, guarding, rebound, rigid Extremities exam: Present: normal inspection, full ROM, normal capillary refill. Absent: tenderness, pedal edema, joint swelling, calf tenderness Back exam: Present: normal inspection Neurological exam: Present: alert, oriented X3, CN II-XII intact Psychiatric exam: Present: normal affect, normal mood Skin exam: Present: warm, dry, intact, normal color. Absent: rash Course Vital Signs 08/24/23 08/24/23 08/24/23 14:35 16:19 17:50 Temperature 98.5 F 98.0 F 97.8 F Pulse Rate 87 72 Respiratory 18 18 16 Rate Blood Pressure 155/98 155/88 O2 Sat by Pulse 96 97 Oximetry Medical Decision Making - Medical Decision Making Was pt. sent in by a medical professional or institution ([facility], INGOT STRIPPER, urgent care, hospital, or senior care...) When possible be specific @ -Patient was sent in by urgent care Did you speak to anyone other than the patient for history (EMS, parent, family, police, friend...)? What history was obtained from this source @ -EMS Did you review nursing and triage notes (agree or disagree)? Why? @ -I reviewed and agree with nursing and triage notes Were old charts reviewed (outside hosp., previous admission, EMS record, old EKG, old radiological studies, urgent care reports/EKG's, senior care records)? Report findings @ -No old charts were reviewed Differential Diagnosis (chest pain, altered mental status, abdominal pain women, abdominal pain men, vaginal bleeding, weakness, fever, dyspnea, syncope, headache, dizziness, GI bleed, back pain, seizure, CVA, palpatations, mental health, musculoskeletal)? @ -Differential Dizziness: Benign paroxysmal positional Vertigo, Menieres disease, otitis media, acoustic neuroma, vertebrobasilar insufficiency, cerebellar stroke, encephalitis, hypovolemic, arrhythmia, coronary artery syndrome, anemia, this is not meant to be an all-inclusive list EKG interpreted by me (3pts min.). @ -Yes and demonstrates sinus rhythm with a rate of 88. SD 145. QRS 125. QTC 441. There is right bundle branch block. No acute ST segment elevations or depressions X-rays interpreted by me (1pt min.). @ -None done CT interpreted by me (1pt min.). @ -None done U/S interpreted by me (1pt. min.). @ -None done What testing was considered but not performed or refused? (CT, X-rays, U/S, labs)? Why? @ -None What meds were considered but not given or refused? Why? @ -None Did you discuss the management of the patient with other professionals (professionals i.e. , PA, INGOT STRIPPER, lab, RT, psych nurse, social professionals, manager auto, teacher, student liaison officer, case coordinator)? Give summary @ -No Was smoking cessation discussed for >3mins.? @ -No Was critical care preformed (if so, how long)? @ -No Were there social determinants of health that impacted care today? How? (Homele ssness, low income, unemployed, alcoholism, drug addiction, transportation, low edu. Level, literacy, decrease access to med. care, senior living, rehab)? @ -Patient does not have a primary care doctor Was there de-escalation of care discussed even if they declined (Discuss DNR or withdrawal of care, Hospice)? DNR status @ -No What co-morbidities impacted this encounter? (DM, HTN, Smoking, COPD, CAD, Cancer, CVA, ARF, Chemo, Hep., AIDS, mental health diagnosis, sleep apnea, morbid obesity)? @ -Chronic vertigo Was patient admitted / discharged? Hospital course, mention meds given and route , prescriptions, significant lab abnormalities, going to OR and other pertinent info. @ -Discharged. Upon arrival patient was placed in the hallway 10. Thorough history and physical exam was performed. We did obtain laboratory studies. Her glucose is elevated. She was given a liter bolus of normal saline. She is also given a meclizine for her dizziness and Zofran for nausea. Patient is reevaluated and reports that she feels markedly improved at this time. Her glucose has come down with the fluid administration. I did discuss the diagnosis, differential and treatment options. Patient is adamant that she does not want to be admitted to the hospital at this time. She states that she will pick up attendant some motion sickness medication [id number]. I did offer to p rescribe her meclizine however she refused. I will send out a hemoglobin A1c on the patient. Inform her that I will not have any results until tomorrow. I will start her on metformin twice a day. She needs to follow up with primary care to ensure that her glucose is being controlled. She is to return for any new or worsening symptoms. Patient understood and she was discharged in stable condition Undiagnosed new problem with uncertain prognosis? @ -Yes Drug Therapy requiring intensive monitoring for toxicity (Heparin, Nitro, Insulin, Cardizem)? @ -No Were any procedures done? @ -No Diagnosis/symptom? @ -Acute hyperglycemia, acute exacerbation of chronic vertigo Acute, or Chronic, or Acute on Chronic? @ -See above Uncomplicated (without systemic symptoms) or Complicated (systemic symptoms)? @ -Complicated Side effects of treatment? @ -No Exacerbation, Progression, or Severe Exacerbation? @ -Yes Poses a threat to life or bodily function? How? (Chest pain, [place], [place], pneumonia, PE, COPD, DKA, ARF, appy, cholecystitis, CVA, Diverticulitis, Homicidal, Suicidal, threat to staff... and all critical care pts) @ -No - Lab Data Result diagrams: 08/24/23 15:11 08/24/23 15:11 Lab Results 08/24/23 08/24/23 08/24/23 Range/Units 15:11 15:11 17:17 WBC 9.7 (3.8-10.6) k/uL RBC 5.53 H (3.80-5.40) m/uL Hgb 17.2 H (11.4-16.0) gm/dL Hct 49.8 H (34.0-46.0) % MCV 90.0 (80.0-100.0) fL MCH 31.1 (25.0-35.0) pg MCHC 34.6 (31.0-37.0) g/dL RDW 12.9 (11.5-15.5) % Plt Count 212 (150-450) k/uL MPV 8.2 Neutrophils % 72 % Lymphocytes % 21 % Monocytes % 5 % Eosinophils % 1 % Basophils % 0 % Neutrophils # 7.0 (1.3-7.7) k/uL Lymphocytes # 2.0 (1.0-4.8) k/uL Monocytes # 0.4 (0-1.0) k/uL Eosinophils # 0.1 (0-0.7) k/uL Basophils # 0.0 (0-0.2) k/uL Sodium 138 (137-145) mmol/L Potassium 3.8 (3.5-5.1) mmol/L Chloride 103 (98-107) mmol/L Carbon Dioxide 24 (22-30) mmol/L Anion Gap 11 mmol/L BUN 15 (7-17) mg/dL Creatinine 0.49 L (0.52-1.04) mg/dL Est GFR (CKD-EPI)AfAm >90 (>60 ml/min/1.73 sqM) Est GFR (CKD-EPI)NonAf >90 (>60 ml/min/1.73 sqM) Glucose 244 H (74-99) mg/dL POC Glucose (mg/dL) 194 H (70-110) mg/dL POC Glu Medical Lab Assistant ID Niyah Blackwell Calcium 9.5 (8.4-10.2) mg/dL Total Bilirubin 0.8 (0.2-1.3) mg/dL AST 74 H (14-36) U/L ALT 62 H (4-34) U/L Alkaline Phosphatase 117 (38-126) U/L Total Protein 7.4 (6.3-8.2) g/dL Albumin 4.2 (3.5-5.0) g/dL TSH 1.370 (0.465-4.680) mIU/L Disposition Clinical Impression: Vertigo, Hyperglycemia Disposition: HOME SELF-CARE Condition: Stable Instructions (If sedation given, give patient instructions): Vertigo (ED), Nondiabetic Hyperglycemia (ED) Additional Instructions: We are running further labs to determine whether you may have diabetes or prediabetes. Until then we will start you on some medications for high blood sugar. Please follow-up with your doctor to ensure improvement in your sugar levels. Return for any new or worsening symptoms Prescriptions: metFORMIN HCL [Glucophage] 500 mg PO BID #60 tab Is patient prescribed a controlled substance at d/c from ED?: No Referrals: Mark Lal MD [REFERRING] - 1-2 days Gorge Encinas MD [STAFF PHYSICIAN] - 1-2 days Omari Velasquez MD [REFERRING] - 1-2 days Time of Disposition: 17:35
[2023-08-24 16:41] LABS: ALT 62 U/L (4-34); AST 74 U/L (14-36); African American GFR (CKD) >90 (>60 ml/min/1.73 sqM); Albumin 4.2 g/dL (3.5-5.0); Alkaline Phosphatase 117 U/L (38-126); Anion Gap 11 mmol/L; Blood Urea Nitrogen 15 mg/dL (7-17); Calcium 9.5 mg/dL (8.4-10.2); Carbon Dioxide 24 mmol/L (22-30); Chloride 103 mmol/L (98-107); Glucose 244 mg/dL (74-99); Non-African American GFR(CKD) >90 (>60 ml/min/1.73 sqM); Potassium 3.8 mmol/L (3.5-5.1); Sodium 138 mmol/L (137-145); Total Bilirubin 0.8 mg/dL (0.2-1.3); Total Protein 7.4 g/dL (6.3-8.2)
[2023-08-24 17:18] LABS: Glucose,Whole Blood 194 mg/dL (70-110)
[2023-08-24 18:01] VITALS: BP 155/88; PULSE 72; RESP 16; TEMP 97.8
== END 2023-08-24 17:53 | disposition home or self-care (01) ==
LOC: EC 14:24
DX: R42 Dizziness and giddiness (principal); R73.9 Hyperglycemia, unspecified; I45.10 Unspecified right bundle-branch block; Z86.59 Personal history of other mental and behavioral disorders; Z88.8 Allergy status to other drugs, medicaments and biological substances; Z90.49 Acquired absence of other specified parts of digestive tract
CPT/HCPCS: 36415; 80053; 83036; 84443; 85025; 93005; 96360; 99284

== ENCOUNTER 2023-08-30 05:14 | Emergency (ER) | payer BC, MEDICARE ==
[2023-08-30 05:19] LABS: Glucose,Whole Blood 195 mg/dL (70-110)
[2023-08-30] MEDS ORDERED: MECLIZINE 12.5 MG TAB PO STA (05:26)
[2023-08-30] MEDS ORDERED: SODIUM CHLORIDE 0.9% 1,000 ML IV STA (05:26)
[2023-08-30 05:37] VITALS: RESP 18; TEMP 98.2
[2023-08-30 05:53] LABS: ALT 53 U/L (4-34); AST 43 U/L (14-36); African American GFR (CKD) >90 (>60 ml/min/1.73 sqM); Albumin 3.6 g/dL (3.5-5.0); Alkaline Phosphatase 115 U/L (38-126); Anion Gap 9 mmol/L; Basophils % (A) 0 %; Blood Urea Nitrogen 15 mg/dL (7-17); Calcium 8.7 mg/dL (8.4-10.2); Carbon Dioxide 26 mmol/L (22-30); Chloride 103 mmol/L (98-107); Eosinophils # (A) 0.1 k/uL (0-0.7); Eosinophils % (A) 3 %; Glucose 200 mg/dL (74-99); HCT 44.7 % (34.0-46.0); HGB 15.5 gm/dL (11.4-16.0); Lymphocytes # (A) 2.4 k/uL (1.0-4.8); Lymphocytes % (A) 44 %; MCH 31.2 pg (25.0-35.0); MCHC 34.7 g/dL (31.0-37.0); MCV 89.9 fL (80.0-100.0); Mean Platelet Volume 8.2; Monocytes # (A) 0.3 k/uL (0-1.0); Monocytes % (A) 5 %; Neutrophils # (A) 2.5 k/uL (1.3-7.7); Neutrophils % (A) 46 %; Non-African American GFR(CKD) >90 (>60 ml/min/1.73 sqM); Platelet Count 203 k/uL (150-450); Potassium 3.4 mmol/L (3.5-5.1); RBC 4.97 m/uL (3.80-5.40); RDW 12.8 % (11.5-15.5); Sodium 138 mmol/L (137-145); Total Bilirubin 0.8 mg/dL (0.2-1.3); Total Protein 6.6 g/dL (6.3-8.2); WBC 5.5 k/uL (3.8-10.6)
[2023-08-30 06:15] VITALS: BP 141/92; PULSE 62
--- NOTE | 2023-08-30 06:35 | ED ---
General Adult HPI - General Chief complaint: Recheck/Abnormal Lab/Rx Stated complaint: Weakness Time Seen by Provider: 08/30/23 05:20 Source: EMS Mode of arrival: EMS - History of Present Illness Initial comments: 73-year-old female with recently diagnosed diabetes mellitus who presents to the emergency department reporting nausea and vomiting. States that she woke from sleep and felt vertiginous symptoms. She had an episode of vomiting. She was restrained diagnosed with diabetes and therefore checked her glucose at home. Her sugar was in the high 200s and therefore she called EMS. Patient does have chronic vertigo and states that the dizziness was nothing new for her. She was more concerned for her hyperglycemia. She currently takes metformin 1000 mg in the a.m. and 500 in the p.m. She just started this medication in the past week. She denies any missed doses currently. She denies any headaches or visual changes. No chest pain or shortness of breath. No unilateral numbness or weakness. No other alleviating, precipitating or modifying factors - Related Data Home Medications Medication Instructions Recorded Confirmed Latanoprost [Xalatan 0.005%] 1 drop BOTH EYES HS 11/19/21 11/15/22 Previous Rx's Medication Instructions Recorded Cephalexin [Keflex] 500 mg PO Q12HR 7 Days #14 cap 11/15/22 metFORMIN HCL [Glucophage] 500 mg PO BID #60 tab 08/24/23 Allergies Allergy/AdvReac Type Severity Reaction Status Date / Time fluoxetine [From Prozac] AdvReac Nausea & Verified 08/30/23 05:21 Vomiting & Diarrhea Review of Systems ROS Statement: Those systems with pertinent positive or pertinent negative responses have been documented in the HPI. ROS Other: All systems not noted in ROS Statement are negative. Past Medical History Past Medical History: Diabetes Mellitus, Thyroid Disorder Additional Past Medical History / Comment(s): Type 2 DM History of Any Multi-Drug Resistant Organisms: None Reported Past Surgical History: Appendectomy, Hysterectomy, Tonsillectomy Past Psychological History: Depression Smoking Status: Never smoker Past Alcohol Use History: None Reported Past Drug Use History: None Reported General Exam General appearance: alert, in no apparent distress Head exam: Present: atraumatic, normocephalic, normal inspection Eye exam: Present: normal appearance, PERRL, EOMI. Absent: scleral icterus, conjunctival injection, periorbital swelling ENT exam: Present: normal exam, mucous membranes moist Neck exam: Present: normal inspection. Absent: tenderness, meningismus, lymphadenopathy Respiratory exam: Present: normal lung sounds bilaterally. Absent: respiratory distress, wheezes, rales, rhonchi, stridor Cardiovascular Exam: Present: regular rate, normal rhythm, normal heart sounds. Absent: systolic murmur, diastolic murmur, rubs, gallop, clicks GI/Abdominal exam: Present: soft, normal bowel sounds. Absent: distended, tenderness, guarding, rebound, rigid Extremities exam: Present: normal inspection, full ROM, normal capillary refill. Absent: tenderness, pedal edema, joint swelling, calf tenderness Back exam: Present: normal inspection Neurological exam: Present: alert, oriented X3, CN II-XII intact Psychiatric exam: Present: normal affect, normal mood Skin exam: Present: warm, dry, intact, normal color. Absent: rash Course Vital Signs 08/30/23 08/30/23 05:19 06:06 Temperature 98.2 F Pulse Rate 64 62 Respiratory 18 18 Rate Blood Pressure 141/84 141/92 O2 Sat by Pulse 95 95 Oximetry Medical Decision Making - Medical Decision Making Was pt. sent in by a medical professional or institution (, PA, MACHINE FEED OPERATOR, urgent care, hospital, or senior care...) When possible be specific @ -No Did you speak to anyone other than the patient for history (EMS, parent, family, police, friend...)? What history was obtained from this source @ -I spoke with EMS for history Did you review nursing and triage notes (agree or disagree)? Why? @ -I reviewed and agree with nursing and triage notes Were old charts reviewed (outside hosp., previous admission, EMS record, old EKG, old radiological studies, urgent care reports/EKG's, senior care records)? Report findings @ -I reviewed patient's last ER visit where she was diagnosed with diabetes mellitus Differential Diagnosis (chest pain, altered mental status, abdominal pain women, abdominal pain men, vaginal bleeding, weakness, fever, dyspnea, syncope, headache, dizziness, GI bleed, back pain, seizure, CVA, palpatations, mental he alth, musculoskeletal)? @ -Differential Dizziness: Benign paroxysmal positional Vertigo, Menieres disease, otitis media, acoustic neuroma, vertebrobasilar insufficiency, cerebellar stroke, encephalitis, hypovolemic, arrhythmia, coronary artery syndrome, anemia, this is not meant to be an all-inclusive list EKG interpreted by me (3pts min.). @ -Yes and demonstrates sinus rhythm with a rate of 64. HI 160. QRS 138. QTC of 487. No acute ST segment elevations or depressions. Right bundle branch block X-rays interpreted by me (1pt min.). @ -None done CT interpreted by me (1pt min.). @ -None done U/S interpreted by me (1pt. min.). @ -None done What testing was considered but not performed or refused? (CT, X-rays, U/S, labs)? Why? @ -None What meds were considered but not given or refused? Why? @ -None Did you discuss the management of the patient with other professionals (professionals i.e. , PA, MACHINE FEED OPERATOR, lab, RT, psych nurse, social work supervisor, burr grinder, teacher, light armored vehicle officer, caseworker)? Give summary @ -No Was smoking cessation discussed for >3mins.? @ -No Was critical care preformed (if so, how long)? @ -No Were there social determinants of health that impacted care today? How? (Homelessness, low income, unemployed, alcoholism, drug addiction, transportation, low edu. Level, literacy, decrease access to med. care, correction, rehab)? @ -No Was there de-escalation of care discussed even if they declined (Discuss DNR or withdrawal of care, Hospice)? DNR status @ -No What co-morbidities impacted this encounter? (DM, HTN, Smoking, COPD, CAD, Cancer, CVA, ARF, Chemo, Hep., AIDS, mental health diagnosis, sleep apnea, morbid obesity)? @ -Diabetes mellitus Was patient admitted / discharged? Hospital course, mention meds given and route, prescriptions, significant lab abnormalities, going to OR and other pertinent info. @ -Upon arrival patient is placed into room 5. History and physical exam was performed. She is given 4 mg of Zofran for her nausea. Additionally given 25 mg of meclizine for dizziness. Laboratory studies are completed. Patient given a liter bolus of normal saline for her hyperglycemia. Glucose does return and is improved. She does have a follow-up appointment with an carpenter mate in September. I discussed diagnosis, differential and treatment options. Patient is adamant that she is on stay in the hospital. Patient is stable for discharge home at this time. Instructed to into taking her medications as directed. Check her glucose frequently. Follow-up with her doctor and return for any new or worsening symptoms. Patient agreeable to this and she was discharged in stable condition Undiagnosed new problem with uncertain prognosis? @ -No Drug Therapy requiring intensive monitoring for toxicity (Heparin, Nitro, Insulin, Cardizem)? @ -No Were any procedures done? @ -No Diagnosis/symptom? @ -Acute nausea and vomiting, acute hyperglycemia Acute, or Chronic, or Acute on Chronic? @ -Acute Uncomplicated (without systemic symptoms) or Complicated (systemic symptoms)? @ -Complicated Side effects of treatment? @ -No Exacerbation, Progression, or Severe Exacerbation? @ -No Poses a threat to life or bodily function? How? (Chest pain, [place], [place], pneumonia, PE, COPD, DKA, ARF, appy, cholecystitis, CVA, Diverticulitis, Homicidal, Suicidal, threat to staff... and all critical care pts) @ -No - Lab Data Result diagrams: 08/30/23 05:30 08/30/23 05:30 Lab Results 08/30/23 08/30/23 08/30/23 Range/Units 05:18 05:30 05:30 WBC 5.5 (3.8-10.6) k/uL RBC 4.97 (3.80-5.40) m/uL Hgb 15.5 (11.4-16.0) gm/dL Hct 44.7 (34.0-46.0) % MCV 89.9 (80.0-100.0) fL MCH 31.2 (25.0-35.0) pg MCHC 34.7 (31.0-37.0) g/dL RDW 12.8 (11.5-15.5) % Plt Count 203 (150-450) k/uL MPV 8.2 Neutrophils % 46 % Lymphocytes % 44 % Monocytes % 5 % Eosinophils % 3 % Basophils % 0 % Neutrophils # 2.5 (1.3-7.7) k/uL Lymphocytes # 2.4 (1.0-4.8) k/uL Monocytes # 0.3 (0-1.0) k/uL Eosinophils # 0.1 (0-0.7) k/uL Basophils # 0.0 (0-0.2) k/uL Sodium 138 (137-145) mmol/L Potassium 3.4 L (3.5-5.1) mmol/L Chloride 103 (98-107) mmol/L Carbon Dioxide 26 (22-30) mmol/L Anion Gap 9 mmol/L BUN 15 (7-17) mg/dL Creatinine 0.55 (0.52-1.04) mg/dL Est GFR (CKD-EPI)AfAm >90 (>60 ml/min/1.73 sqM) Est GFR (CKD-EPI)NonAf >90 (>60 ml/min/1.73 sqM) Glucose 200 H (74-99) mg/dL POC Glucose (mg/dL) 195 H (70-110) mg/dL POC Glu Sewer Pipe Press Operator ID Todd, [place] Calcium 8.7 (8.4-10.2) mg/dL Total Bilirubin 0.8 (0.2-1.3) mg/dL AST 43 H (14-36) U/L ALT 53 H (4-34) U/L Alkaline Phosphatase 115 (38-126) U/L Troponin I (0.000-0.034) ng/mL Total Protein 6.6 (6.3-8.2) g/dL Albumin 3.6 (3.5-5.0) g/dL 08/30/23 Range/Units 05:30 WBC (3.8-10.6) k/uL RBC (3.80-5.40) m/uL Hgb (11.4-16.0) gm/dL Hct (34.0-46.0) % MCV (80.0-100.0) fL MCH (25.0-35.0) pg MCHC (31.0-37.0) g/dL RDW (11.5-15.5) % Plt Count (150-450) k/uL MPV Neutrophils % % Lymphocytes % % Monocytes % % Eosinophils % % Basophils % % Neutrophils # (1.3-7.7) k/uL Lymphocytes # (1.0-4.8) k/uL Monocytes # (0-1.0) k/uL Eosinophils # (0-0.7) k/uL Basophils # (0-0.2) k/uL Sodium (137-145) mmol/L Potassium (3.5-5.1) mmol/L Chloride (98-107) mmol/L Carbon Dioxide (22-30) mmol/L Anion Gap mmol/L BUN (7-17) mg/dL Creatinine (0.52-1.04) mg/dL Est GFR (CKD-EPI)AfAm (>60 ml/min/1.73 sqM) Est GFR (CKD-EPI)NonAf (>60 ml/min/1.73 sqM) Glucose (74-99) mg/dL POC Glucose (mg/dL) (70-110) mg/dL POC Glu Sewer Pipe Press Operator ID Calcium (8.4-10.2) mg/dL Total Bilirubin (0.2-1.3) mg/dL AST (14-36) U/L ALT (4-34) U/L Alkaline Phosphatase (38-126) U/L Troponin I <0.012 (0.000-0.034) ng/mL Total Protein (6.3-8.2) g/dL Albumin (3.5-5.0) g/dL Disposition Clinical Impression: Vertigo, Hyperglycemia Disposition: HOME SELF-CARE Condition: Stable Instructions (If sedation given, give patient instructions): Diabetic Hyperglycemia (ED) Additional Instructions: Please continue taking your metformin as directed. Follow-up with your doctor and return for any new or worsening symptoms Is patient prescribed a controlled substance at d/c from ED?: No Referrals: None,Stated [REFERRING] - 1-2 days Time of Disposition: 06:34
== END 2023-08-30 06:44 | disposition home or self-care (01) ==
LOC: EC 05:14
DX: E11.65 Type 2 diabetes mellitus with hyperglycemia (principal); R42 Dizziness and giddiness; I45.10 Unspecified right bundle-branch block; Z86.59 Personal history of other mental and behavioral disorders; Z88.8 Allergy status to other drugs, medicaments and biological substances
CPT/HCPCS: 36415; 80053; 84484; 85025; 93005; 96360; 99284

== ENCOUNTER 2023-09-14 13:37 | Observation (INO) | payer BC, MEDICARE ==
[2023-09-14] MEDS ORDERED: MECLIZINE 25 MG TAB PO STA (13:47)
[2023-09-14] MEDS ORDERED: METOCLOPRAMIDE 5 MG/ML 2 ML VIAL IVP STA (13:48)
--- NOTE | 2023-09-14 13:50 | ED ---
General Adult HPI - General Source: patient, RN notes reviewed, old records reviewed <Jaime Clayton - Last Filed: 09/14/23 15:49> <Alyse Nolen - Last Filed: 09/15/23 00:50> - General Stated complaint: Vomiting Time Seen by Provider: 09/14/23 13:40 - History of Present Illness Initial comments: This is a 73-year-old female who presents emergency Department with long- standing history of vertigo. Patient states she became very vertiginous today and became nauseated and vomiting. EMS was called when he arrived the patient was unresponsive sitting at the table with her head on the table and eventually she started to come around when she did she stated she had vertigo and she coul dn't open her eyes because it made the whole room spinning. Patient states remains nauseated and she remains extremely dizzy even lying in bed. Patient states putting ice does help. EMS was not sure if she was unresponsive secondary to a vasovagal episode from vomiting so much or there was another cause. Patient does not remember EMS arriving at her house at this time. Patient denies headache patient denies any numbness or weakness. Patient denies any chest pain palpitations difficulty breathing shortness of breath. Patient denies any recent fever chills or cough. (Jaime Clayton) - Related Data Home Medications Medication Instructions Recorded Confirmed Latanoprost [Xalatan 0.005%] 1 drop BOTH EYES HS 11/19/21 09/14/23 Insulin Glargine,Hum.rec.anlog 15 units SQ HS 09/14/23 09/14/23 [Lantus Solostar Pen] Meclizine [Antivert] 25 mg PO TID PRN 09/14/23 09/14/23 Previous Rx's Medication Instructions Recorded metFORMIN HCL [Glucophage] 500 mg PO BID #60 tab 08/24/23 Allergies Allergy/AdvReac Type Severity Reaction Status Date / Time fluoxetine [From Prozac] AdvReac Nausea & Verified 09/14/23 17:19 Vomiting & Diarrhea Review of Systems ROS Other: All systems not noted in ROS Statement are negative. <Jaime Clayton - Last Filed: 09/14/23 15:49> ROS Other: All systems not noted in ROS Statement are negative. <Alyse Nolen - Last Filed: 09/15/23 00:50> ROS Statement: Those systems with pertinent positive or pertinent negative responses have been documented in the HPI. Past Medical History Past Medical History: Diabetes Mellitus, Thyroid Disorder Additional Past Medical History / Comment(s): Type 2 DM History of Any Multi-Drug Resistant Organisms: None Reported Past Surgical History: Appendectomy, Hysterectomy, Tonsillectomy Past Psychological History: Depression Smoking Status: Never smoker Past Alcohol Use History: None Reported Past Drug Use History: None Reported <Jaime Clayton - Last Filed: 09/14/23 15:49> General Exam <Jaime Clayton - Last Filed: 09/14/23 15:49> - General Exam Comments Initial Comments: GENERAL: Patient is well-developed and well-nourished. Patient is nontoxic and well- hydrated and is in no acute distress. ENT: Neck is soft and supple. No significant lymphadenopathy is noted. Oropharynx is clear. Moist mucous membranes. Neck has full range of motion without eliciting any pain. EYES: The sclera were anicteric and conjunctiva were pink and moist. Extraocular movements were intact and pupils were equal round and reactive to light. Patient has significant nystagmus that doesn't appear to be chest WALL APPEARS TO HAVE A COMPONENT OF VERTICAL NYSTAGMUS WELL IT DOES APPEAR TO BE SOMEWHAT INTERMITTENT Eyelids were unremarkable. PULMONARY: Unlabored respirations. Good breath sounds bilaterally. No audible rales rhonc hi or wheezing was noted. CARDIOVASCULAR: There is a regular rate and rhythm without any murmurs gallops or rubs. ABDOMEN: Soft and nontender with normal bowel sounds. SKIN: Skin is clear with no lesions or rashes and otherwise unremarkable. NEUROLOGIC: Patient is alert and oriented x3. Cranial nerves II through XII are grossly intact. Motor and sensory are also intact. Normal speech, volume and content. Symmetrical smile. Finger to nose testing was normal bilaterally MUSCULOSKELETAL: Normal extremities with adequate strength and full range of motion. LYMPHATICS: No significant lymphadenopathy is noted PSYCHIATRIC: Normal psychiatric evaluation. (Jaime Clayton) Course Vital Signs 09/14/23 09/14/23 09/14/23 13:47 16:36 17:58 Temperature 97.5 F L 98.0 F Pulse Rate 59 L 72 70 Respiratory 18 18 18 Rate Blood Pressure 144/78 138/77 137/85 O2 Sat by Pulse 97 98 98 Oximetry Medical Decision Making - Lab Data Result diagrams: 09/14/23 14:21 09/14/23 14:21 <Jaime Clayton - Last Filed: 09/14/23 15:49> - Lab Data Result diagrams: 09/14/23 14:21 09/14/23 14:21 <Alyse Nolen - Last Filed: 09/15/23 00:50> - Medical Decision Making Was pt. sent in by a medical professional or institution (, PA, LOCKSTITCHER, urgent care, hospital, or halfway...) When possible be specific @ -No Did you speak to anyone other than the patient for history (EMS, parent, family, police, friend...)? What history was obtained from this source @ -EMS gave this some of the history and particular when they first arrived and finding the patient unresponsive Did you review nursing and triage notes (agree or disagree)? Why? @ -I reviewed and agree with nursing and triage notes Were old charts reviewed (outside hosp., previous admission, EMS record, old EKG, old radiological studies, urgent care reports/EKG's, halfway records)? Report findings @ -I reviewed prior notes prior charts on this patient Differential Diagnosis (chest pain, altered mental status, abdominal pain women, abdominal pain men, vaginal bleeding, weakness, fever, dyspnea, syncope, headache, dizziness, GI bleed, back pain, seizure, CVA, palpatations, mental health, musculoskeletal)? @ -Differential Dizziness: Benign paroxysmal positional Vertigo, Menieres disease, otitis media, acoustic neuroma, vertebrobasilar insufficiency, cerebellar stroke, encephalitis, hypovolemic, arrhythmia, coronary artery syndrome, anemia, this is not meant to be an all-inclusive list EKG interpreted by me (3pts min.). @ -As above X-rays interpreted by me (1pt min.). @ -None done CT interpreted by me (1pt min.). @ -None done U/S interpreted by me (1pt. min.). @ -None done What testing was considered but not performed or refused? (CT, X-rays, U/S, labs)? Why? @ -None What meds were considered but not given or refused? Why? @ -None Did you discuss the management of the patient with other professionals (professionals i.e. , PA, LOCKSTITCHER, lab, RT, psych nurse, clinical social work aide, automobile racer, teacher, parking regulation enforcement officer, case management assistant)? Give summary @ -No Was smoking cessation discussed for >3mins.? @ -No Was critical care preformed (if so, how long)? @ -No Were there social determinants of health that impacted care today? How? (Homelessness, low income, unemployed, alcoholism, drug addiction, tr ansportation, low edu. Level, literacy, decrease access to med. care, care home, rehab)? @ -No Was there de-escalation of care discussed even if they declined (Discuss DNR or withdrawal of care, Hospice)? DNR status @ -No What co-morbidities impacted this encounter? (DM, HTN, Smoking, COPD, CAD, Cancer, CVA, ARF, Chemo, Hep., AIDS, mental health diagnosis, sleep apnea, morbid obesity)? @ -None Was patient admitted / discharged? Hospital course, mention meds given and route, prescriptions, significant lab abnormalities, going to OR and other pertinent info. @ -Received 2 of Valium as well as Antivert while in the hospital. Patient was nauseous and she received 5 of Reglan as well. The care of this patient will be taking over by Dr. Gtz at 4 PM (Jaime Clayton) EKG interpreted by me (3pts min.). @ -Yes and demonstrates sinus rhythm with rate of 59. [place] interval 178. QRS 127. QTC 445. Right bundle-branch block. No acute ST segment elevations Was patient admitted / discharged? Hospital course, mention meds given and route, prescriptions, significant lab abnormalities, going to OR and other pertinent info. @ -Patient's is signed out to me from previous physician. I did review her CT. CT is negative for acute process. She is reevaluated. I did discuss admitting the patient for which she was adamant that she wanted to go home. I did discuss the risks the patient continued to want to leave. She is of sound mind and capable of making her own decisions. Discharge orders are placed. Patient then attempts to ambulate and realizes that she is still extremely dizzy. Patient is agreeable to staying. I did call and speak with Dr. Stapleton who was agreeable to admitting the patient. She was taken to the floor in stable condition Undiagnosed new problem with uncertain prognosis? @ -No Drug Therapy requiring intensive monitoring for toxicity (Heparin, Nitro, Insulin, Cardizem)? @ -No Were any procedures done? @ -No Diagnosis/symptom? @ -Intractable vertigo, unresponsive episode Acute, or Chronic, or Acute on Chronic? @ -Acute on chronic Uncomplicated (without systemic symptoms) or Complicated (systemic symptoms)? @ -Complicated Side effects of treatment? @ -No Exacerbation, Progression, or Severe Exacerbation? @ -Yes Poses a threat to life or bodily function? How? (Chest pain, USA, OR, pneumonia, PE, COPD, DKA, ARF, appy, cholecystitis, CVA, Diverticulitis, Homicidal, Suicidal, threat to staff... and all critical care pts) @ -No (Alyse Nolen) - Lab Data Lab Results 09/14/23 09/14/23 09/14/23 Range/Units 14:21 14:21 14:21 WBC 5.9 (3.8-10.6) k/uL RBC 5.25 (3.80-5.40) m/uL Hgb 16.5 H (11.4-16.0) gm/dL Hct 47.7 H (34.0-46.0) % MCV 90.8 (80.0-100.0) fL MCH 31.5 (25.0-35.0) pg MCHC 34.7 (31.0-37.0) g/dL RDW 12.8 (11.5-15.5) % Plt Count 230 (150-450) k/uL MPV 8.2 Neutrophils % 69 % Lymphocytes % 24 % Monocytes % 4 % Eosinophils % 1 % Basophils % 1 % Neutrophils # 4.1 (1.3-7.7) k/uL Lymphocytes # 1.4 (1.0-4.8) k/uL Monocytes # 0.2 (0-1.0) k/uL Eosinophils # 0.1 (0-0.7) k/uL Basophils # 0.0 (0-0.2) k/uL PT 10.4 (10.0-12.5) sec INR 0.9 (<1.2) APTT 21.9 L (22.0-30.0) sec Sodium 138 (137-145) mmol/L Potassium 4.5 (3.5-5.1) mmol/L Chloride 103 (98-107) mmol/L Carbon Dioxide 25 (22-30) mmol/L Anion Gap 10 mmol/L BUN 11 (7-17) mg/dL Creatinine 0.57 (0.52-1.04) mg/dL Est GFR (CKD-EPI)AfAm >90 (>60 ml/min/1.73 sqM) Est GFR (CKD-EPI)NonAf >90 (>60 ml/min/1.73 sqM) Glucose 137 H (74-99) mg/dL Calcium 9.4 (8.4-10.2) mg/dL Magnesium 2.0 (1.6-2.3) mg/dL Total Bilirubin 0.7 (0.2-1.3) mg/dL AST 61 H (14-36) U/L ALT 74 H (4-34) U/L Alkaline Phosphatase 108 (38-126) U/L Troponin I (0.000-0.034) ng/mL Total Protein 7.4 (6.3-8.2) g/dL Albumin 4.2 (3.5-5.0) g/dL 09/14/23 Range/Units 14:21 WBC (3.8-10.6) k/uL RBC (3.80-5.40) m/uL Hgb (11.4-16.0) gm/dL Hct (34.0-46.0) % MCV (80.0-100.0) fL MCH (25.0-35.0) pg MCHC (31.0-37.0) g/dL RDW (11.5-15.5) % Plt Count (150-450) k/uL MPV Neutrophils % % Lymphocytes % % Monocytes % % Eosinophils % % Basophils % % Neutrophils # (1.3-7.7) k/uL Lymphocytes # (1.0-4.8) k/uL Monocytes # (0-1.0) k/uL Eosinophils # (0-0.7) k/uL Basophils # (0-0.2) k/uL PT (10.0-12.5) sec INR (<1.2) APTT (22.0-30.0) sec Sodium (137-145) mmol/L Potassium (3.5-5.1) mmol/L Chloride (98-107) mmol/L Carbon Dioxide (22-30) mmol/L Anion Gap mmol/L BUN (7-17) mg/dL Creatinine (0.52-1.04) mg/dL Est GFR (CKD-EPI)AfAm (>60 ml/min/1.73 sqM) Est GFR (CKD-EPI)NonAf (>60 ml/min/1.73 sqM) Glucose (74-99) mg/dL Calcium (8.4-10.2) mg/dL Magnesium (1.6-2.3) mg/dL Total Bilirubin (0.2-1.3) mg/dL AST (14-36) U/L ALT (4-34) U/L Alkaline Phosphatase (38-126) U/L Troponin I <0.012 (0.000-0.034) ng/mL Total Protein (6.3-8.2) g/dL Albumin (3.5-5.0) g/dL Disposition <Jaime Clayton - Last Filed: 09/14/23 15:49> Is patient prescribed a controlled substance at d/c from ED?: No Time of Disposition: 16:59 Decision to Admit Reason: Admit from EC Decision Date: 09/14/23 Decision Time: 17:20 <Alyse Nolen - Last Filed: 09/15/23 00:50> Clinical Impression: Vertigo Disposition: ADMITTED IP TO THIS [facility] Condition: Stable
[2023-09-14 14:38] LABS: Basophils % (A) 1 %; Eosinophils # (A) 0.1 k/uL (0-0.7); Eosinophils % (A) 1 %; HCT 47.7 % (34.0-46.0); HGB 16.5 gm/dL (11.4-16.0); Lymphocytes # (A) 1.4 k/uL (1.0-4.8); Lymphocytes % (A) 24 %; MCH 31.5 pg (25.0-35.0); MCHC 34.7 g/dL (31.0-37.0); MCV 90.8 fL (80.0-100.0); Mean Platelet Volume 8.2; Monocytes # (A) 0.2 k/uL (0-1.0); Monocytes % (A) 4 %; Neutrophils # (A) 4.1 k/uL (1.3-7.7); Neutrophils % (A) 69 %; Platelet Count 230 k/uL (150-450); RBC 5.25 m/uL (3.80-5.40); RDW 12.8 % (11.5-15.5); WBC 5.9 k/uL (3.8-10.6)
[2023-09-14 15:12] LABS: INR 0.9 (<1.2); Prothrombin Time 10.4 sec (10.0-12.5)
--- NOTE | 2023-09-14 15:12 | XR ---
EXAMINATION TYPE: XR chest 2V DATE OF EXAM: 09/14/2023 COMPARISON: 11/15/2022 HISTORY: Chest pain TECHNIQUE: Frontal and lateral views of the chest are obtained. FINDINGS: There is no focal air space opacity, pleural effusion, or pneumothorax seen. The cardiac silhouette size is within normal limits. The osseous structures are intact. IMPRESSION: No acute cardiopulmonary process.
[2023-09-14 15:16] LABS: ALT 74 U/L (4-34); AST 61 U/L (14-36); African American GFR (CKD) >90 (>60 ml/min/1.73 sqM); Albumin 4.2 g/dL (3.5-5.0); Alkaline Phosphatase 108 U/L (38-126); Anion Gap 10 mmol/L; Blood Urea Nitrogen 11 mg/dL (7-17); Calcium 9.4 mg/dL (8.4-10.2); Carbon Dioxide 25 mmol/L (22-30); Chloride 103 mmol/L (98-107); Glucose 137 mg/dL (74-99); Non-African American GFR(CKD) >90 (>60 ml/min/1.73 sqM); Potassium 4.5 mmol/L (3.5-5.1); Sodium 138 mmol/L (137-145); Total Bilirubin 0.7 mg/dL (0.2-1.3); Total Protein 7.4 g/dL (6.3-8.2)
[2023-09-14 15:23] LABS: Partial Thromboplastin Time 21.9 sec (22.0-30.0)
--- NOTE | 2023-09-14 15:59 | CT ---
EXAMINATION TYPE: CT brain wo con DATE OF EXAM: 09/14/2023 COMPARISON: 11/19/2021 HISTORY: syncope, nystagmus CT DLP: 1099.6 mGycm Automated exposure control for dose reduction was used. FINDINGS: The ventricles, basal cisterns and sulci over convexities are mildly enlarged consistent with mild at rophy. There is no shift of midline structures or mass effect. There is no acute intra or extra-axial hemorrhage There is a small remote lacunar infarct in left basal ganglia. The posterior fossa and the brainstem, fourth ventricle and cerebellar pontine angles are grossly nor mal. Intraorbital contents appear normal and symmetric. Visualized paranasal sinuses and mastoid air cells are well aerated. The calvarium is intact. IMPRESSION: 1. No acute bleed or mass effect. 2. Small remote lacunar infarct in left basal ganglia. 3. Mild age-appropriate atrophy.
--- NOTE | 2023-09-14 16:13 | CT ---
EXAMINATION TYPE: CT angio head neck DATE OF EXAM: 09/14/2023 HISTORY: syncope, nystagmus COMPARISON: None CT DLP: 543 mGycm. Automated Exposure Control for Dose Reduction was Utilized. TECHNIQUE: CTA scan of the head and neck is performed with IV Contrast, patient injected with 65 cc mL of Isovue 370, axial images are obtained, coronal and sagittal reformatted images are reviewed. 3D reconstructed images are created on an independent workstation and reviewed. FINDINGS: The brachiocephalic origins are widely patent. There is no significant stenosis of the common or internal carotid arteries within the neck. Intracranially, there is no segmental occlusion, stenosis, sizable aneurysm sac or vascular malformat ion. IMPRESSION: No significant abnormality. NASCET criteria was used in interpretation of this exam?
[2023-09-14] MEDS ORDERED: NALOXONE 0.4 MG/ML 1 ML VIAL IV PRN (17:20)
[2023-09-14] MEDS: SODIUM CHLORIDE 0.9% 1,000 ML IV SCH (17:57)
[2023-09-14 19:59] LABS: Glucose,Whole Blood 117 mg/dL (70-110)
[2023-09-14] MEDS ORDERED: INSULIN DETEMIR (LEVEMIR) 100 UNIT/ML SYR SQ SCH (22:00)
[2023-09-14] MEDS ORDERED: LATANOPROST 0.005% OPHTH DROPS 2.5 ML BTL BOTH EYES SCH (22:00)
[2023-09-14] MEDS: metFORMIN 500 MG TAB PO SCH (22:26)
[2023-09-14] MEDS: MECLIZINE 25 MG TAB PO SCH (22:26)
[2023-09-15 03:06] VITALS: RESP 16
[2023-09-15 04:58] LABS: Glucose,Whole Blood 101 mg/dL (70-110)
[2023-09-15 07:49] VITALS: BP 132/81; PULSE 71; TEMP 98.4
[2023-09-15] MEDS: SODIUM CHLORIDE 0.9% 1,000 ML IV SCH (08:57)
[2023-09-15] MEDS: metFORMIN 500 MG TAB PO SCH (09:30)
[2023-09-15] MEDS: MECLIZINE 25 MG TAB PO SCH (09:30)
--- NOTE | 2023-09-15 11:38 | P.CNNES ---
History of Present Illness Consult date: 09/15/23 Requesting physician: Alyse Nolen Reason for Consult: intractable vertigo History of Present Illness: This is a 73-year-old woman with history of chronic right hearing loss who presents emergency department because of the dizziness with nausea vomiting. She stated that the this past Friday she is been noticing dizziness and she feels the room is spinning happening mostly with position with the nausea vomiting. She denies any focal weakness. Denies any recent sickness appear denies any new ranging of the ears. She has chronic right hearing loss about 3 years ago with ringing of the right ear. She was developed by ENT at in the past. Currently she denies of any focal weakness, numbness, difficulty getting her words out or swallowing. She feels her dizziness is drastically improved as well as her vomiting has resolved. She feels back to baseline. She denies any history of stroke in the past. Some other workup during his hospital visit consisted of: Sodium is 138, calcium 9.4,. CT of the head is reported as no acute bleed or mass effect. Small remote lacunar infarct in the left basal ganglia. Mild age appropriate atrophy. I personally reviewed the CT of the head and there is no acute or subacute ischemia. I feel the patient has bilateral remote lacunar stroke over basal ganglia more visible on the left than the right. CT angiography of the head and neck was reported as no significant abnormality. Review of Systems Review of system: The 12 point system was reviewed and apparent positive and negative per HPI. Past Medical History Past Medical History: Diabetes Mellitus, Thyroid Disorder Additional Past Medical History / Comment(s): Type 2 DM History of Any Multi-Drug Resistant Organisms: None Reported Past Surgical History: Appendectomy, Hysterectomy, Tonsillectomy Past Anesthesia/Blood Transfusion Reactions: No Reported Reaction Past Psychological History: Depression Smoking Status: Never smoker Past Alcohol Use History: None Reported Past Drug Use History: None Reported Medications and Allergies Home Medications Medication Instructions Recorded Confirmed Type Latanoprost [Xalatan 0.005%] 1 drop BOTH EYES HS 11/19/21 09/14/23 History metFORMIN HCL [Glucophage] 500 mg PO BID #60 tab 08/24/23 09/14/23 Rx Insulin Glargine,Hum.rec.anlog 15 units SQ HS 09/14/23 09/14/23 History [Lantus Solostar Pen] Meclizine [Antivert] 25 mg PO TID PRN 09/14/23 09/14/23 History Allergies Allergy/AdvReac Type Severity Reaction Status Date / Time fluoxetine [From Prozac] AdvReac Nausea & Verified 09/14/23 17:19 Vomiting & Diarrhea Physical Examination - Vital Signs Vital Signs: Vital Signs Temp Pulse Pulse Resp BP BP Pulse Ox 09/15/23 07:00 98.4 F 71 16 132/81 99 09/15/23 02:35 64 16 09/15/23 02:00 98.1 F 64 16 126/77 98 09/14/23 22:26 60 18 09/14/23 18:36 97.8 F 60 18 156/83 98 09/14/23 17:58 98.0 F 70 18 137/85 98 09/14/23 16:36 72 18 138/77 98 09/14/23 13:47 97.5 F L 59 L 18 144/78 97 Intake and Output 09/14/23 09/15/23 09/15/23 22:59 06:59 14:59 Intake Total 118 Balance 118 Intake: Oral 118 Other: Voiding Method Toilet Toilet # Voids 1 2 Weight 68.039 kg GENERAL: The patient is lying in bed and is not in acute distress. NEUROLOGICAL: Higher mental function: The patient is awake, alert, oriented to self, place and time. Patient is following commands. No aphasia and no neglect. Cranial nerves: The pupils are round, equal and reactive to light and accommodation. Visual ivory are full to confrontation throughout. Extraocular movement is intact no nystagmus is noted. Facial sensation is normal to touch throughout. The facial strength is normal throughout. Hearing is is decreased hearing loss out of the right ear which is old and normal out of the left to hand rub. Tongue is midline and moved [id number] without any difficulty. No dysarthria is noted. Shoulder shrug is normal bilaterally. Motor: Gait is normal. The strength is 5 over 5 throughout. Normal tone and bulk. Cerebellum: Normal finger to nose heel to henry bilaterally. Sensation: Sensation is normal to touch throughout. Reflexes (right/left): 2+ throughout. Plantars are downgoing bilaterally. Results - Laboratory Findings CBC and BMP: 09/14/23 14:21 09/14/23 14:21 Abnormal Lab Findings: Abnormal Labs 09/14/23 09/14/23 09/14/23 14:21 14:21 14:21 Hgb 16.5 H Hct 47.7 H APTT 21.9 L Glucose 137 H POC Glucose (mg/dL) AST 61 H ALT 74 H 09/14/23 19:58 Hgb Hct APTT Glucose POC Glucose (mg/dL) 117 H AST ALT Assessment and Plan Assessment: This is a 73 year-old woman with history of chronic right hearing loss who presents because of dizziness, nausea and vomiting since yesterday but feels resolved today. Denies of any focal deficits. CT head is negative for acute/subacute stroke and CTA is negative. Acute vertigo is likely peripheral---dizziness resolved. Has no focal deficits. History of chronic right hearing loss Old lacunar basal ganglia and appears bilaterally left > right. DM type II Plan: Is on Meclizine 25mg 1 tab tid. Since her symptoms has resolved no need for MRI Brain. If she has reoccurrence of symptoms recommend MRI Brain. Also consider ENT as outpatient and vestibular rehab therapy if has persistence of symptoms. I place patient on ASA 81mg daily for secondary prophylaxis especially with old lacunar stroke. Also recommend controlling her risk factors. Will defer the rest of medical management to the primary team. Otherwise no additional neurological work-up. The plan is discussed with patient, N.P. from primary team. Thank you for the consultation. Time with Patient: Greater than 30
[2023-09-15] MEDS ORDERED: ASPIRIN 81 MG PO SCH (11:45)
[2023-09-15 12:14] LABS: Glucose,Whole Blood 104 mg/dL (70-110)
[2023-09-15] MEDS ORDERED: INSULIN DETEMIR (LEVEMIR) 100 UNIT/ML SYR SQ SCH (21:00)
--- NOTE | 2023-09-16 16:42 | P.HPIM ---
History of Present Illness H&P Date: 09/15/23 This is a pleasant 73-year-old female who presented to the emergency department with increased dizziness and history of vertigo. Patient was brought in by EMS as patient did have an episode of increased dizziness with vertigo and unable to lift her head or respond as patient had significant weakness with nausea. Patient reports has been using Dramamine in the outpatient setting that is ineffective. Patient was given meclizine and admitted under observation with neurology on consult. In the ER patient had chest x-ray showing no acute cardiopulmonary process, CT brain was no acute bleed or mass effect with small remote lacunar infarct in the left basal ganglia with mild age-appropriate a trophy, and also angiography CT showing no significant abnormality with no significant stenosis of the common or internal carotid arteries within the neck. Labs reviewed and within normal limits, troponin was negative, magnesium 2.0, BMP and CBC within normal limits and liver functions mildly elevated. EKG showed sinus bradycardia with heart rate of 59 bpm. Patient follows with Dr. Simon in the outpatient setting with a past medical history of diabetes mellitus, thyroid, vertigo, depression. Review Of Systems: Constitutional: No fever, no chills, no night sweats. No weight change. No weakness, fatigue or lethargy. No daytime sleepiness. EENT: No headache. No blurred vision or double vision, no loss of vision. No loss of Hearing, no ringing in the ears, no dizziness. No nasal drainage or congestion. No epistaxis. No sore throat. Lungs: No shortness of breath, cough, no sputum production. No wheezing. Cardiovascular: No chest pain, no lower extremity edema. No palpitations. No paroxysmal nocturnal dyspnea. No orthopnea. No lightheadedness or dizziness. No syncopal episodes. Abdominal: No abdominal pain. Reports resolved nausea and vomiting. No diarrhea. No constipation. No bloody or tarry stools.. No loss of appetite. Genitourinary: No dysuria, increased frequency, urgency. No urinary retention. Musculoskeletal: No myalgias. No muscle weakness, no gait dysfunction, no frequent falls. No back pain. No neck pain. Integumentary: No wounds, no lesions. No rash or pruritus. No unusual bruising. No change in hair or nails. Neurologic: No aphasia. No facial droop. No change in mentation. No head injury. No headache. No paralysis. No paresthesia. Reported increased dizziness that has resolved Psychiatric: No depression. No anxiety. No mood swings. Endocrine: No abnormal blood sugars. No weight change. No excessive sweating or thirst. No cold intolerance. PHYSICAL EXAMINATION: GENERAL: The patient is alert and oriented x4, Well developed, well nourished. HEENT: Pupils are round and equally reacting to light. EOMI. no scleral icterus. No conjunctival pallor. Normocephalic, atraumatic. No pharyngeal erythema. No thyromegaly. CARDIOVASCULAR: S1 and S2 muffled PULMONARY: diminished breath sounds bilaterally with no wheezing or rhonchi noted. ABDOMEN: soft. Nontender on exam. obese. non-distended, normoactive bowel sounds. No palpable organomegaly. MUSCULOSKELETAL: No joint swelling or deformity. EXTREMITIES: No cyanosis, clubbing, or pedal edema. NEUROLOGICAL: Gross neurological examination did not reveal any focal deficits. SKIN: No rashes. Assessment: Dizziness with history of vertigo, BPPV History of diabetes mellitus, type II, non-insulin dependent History of depression Hypothyroidism history GI prophylaxis DVT prophylaxis Full code Plan: Recommend to continue with current medications and neurology has evaluated the patient and has been resumed on meclizine showing significant improvement. Patient reports her dizziness has resolved and would like to go home neurology has evaluated the patient and cleared the patient for outpatient follow-up. Patient was provided a prescription for meclizine and referral to ENT was also provided patient was instructed to follow-up with primary care provider on discharge The impression and plan of care has been dictated by Mel Reeves nurse practitioner as directed. Dr. Rogelio MD I have performed a history and examination and MDM of this patient, discussed the same with the dictator, and agree with the dictator's assessment and plan as written ,documented as a scribe. Based on total visit time, I have performed more than 50% of the visit. Any additional findings or plans will be noted. Past Medical History Past Medical History: Diabetes Mellitus, Thyroid Disorder Additional Past Medical History / Comment(s): Type 2 DM History of Any Multi-Drug Resistant Organisms: None Reported Past Surgical History: Appendectomy, Hysterectomy, Tonsillectomy Past Anesthesia/Blood Transfusion Reactions: No Reported Reaction Past Psychological History: Depression Smoking Status: Never smoker Past Alcohol Use History: None Reported Past Drug Use History: None Reported Medications and Allergies Home Medications Medication Instructions Recorded Confirmed Type Latanoprost [Xalatan 0.005%] 1 drop BOTH EYES HS 11/19/21 09/14/23 History metFORMIN HCL [Glucophage] 500 mg PO BID #60 tab 08/24/23 09/14/23 Rx Insulin Glargine,Hum.rec.anlog 15 units SQ HS 09/14/23 09/14/23 History [Lantus Solostar Pen] Aspirin 81 mg PO DAILY #30 tab 09/15/23 Rx Meclizine [Antivert] 25 mg PO TID PRN #30 tab 09/15/23 Rx Allergies Allergy/AdvReac Type Severity Reaction Status Date / Time fluoxetine [From Prozac] AdvReac Nausea & Verified 09/14/23 17:19 Vomiting & Diarrhea Physical Exam Vitals: Vital Signs Temp Pulse Pulse Resp BP BP Pulse Ox 09/15/23 07:00 98.4 F 71 16 132/81 99 09/15/23 02:35 64 16 09/15/23 02:00 98.1 F 64 16 126/77 98 09/14/23 22:26 60 18 09/14/23 18:36 97.8 F 60 18 156/83 98 09/14/23 17:58 98.0 F 70 18 137/85 98 09/14/23 16:36 72 18 138/77 98 09/14/23 13:47 97.5 F L 59 L 18 144/78 97 Intake and Output 09/14/23 09/15/23 09/15/23 22:59 06:59 14:59 Other: Voiding Method Toilet Toilet # Voids 1 2 Weight 68.039 kg Results CBC & Chem 7: 09/14/23 14:21 09/14/23 14:21 Labs: Abnormal Lab Results - Last 24 Hours (Table) 09/14/23 09/14/23 09/14/23 Range/Units 14:21 14:21 14:21 Hgb 16.5 H (11.4-16.0) gm/dL Hct 47.7 H (34.0-46.0) % APTT 21.9 L (22.0-30.0) sec Glucose 137 H (74-99) mg/dL POC Glucose (mg/dL) (70-110) mg/dL AST 61 H (14-36) U/L ALT 74 H (4-34) U/L 09/14/23 Range/Units 19:58 Hgb (11.4-16.0) gm/dL Hct (34.0-46.0) % APTT (22.0-30.0) sec Glucose (74-99) mg/dL POC Glucose (mg/dL) 117 H (70-110) mg/dL AST (14-36) U/L ALT (4-34) U/L Thrombosis Risk Factor Assmnt - Choose All That Apply Any of the Below Risk Factors Present?: Yes Each Risk Factor Represents 2 Points: Age 61-74 years Other congenital or acquired thrombophilia - If yes, enter type in comment: No Thrombosis Risk Factor Assessment Total Risk Factor Score: 2 Thrombosis Risk Factor Assessment Level: Low Risk
--- NOTE | 2023-09-16 16:46 | P.DS ---
Providers Date of admission: 09/14/23 17:23 Expected date of discharge: 09/15/23 Attending physician: Krystyna Jones Consults: 09/15/23 00:50 Consult Physician Urgent Consulting Provider: Tala Baez Consult Reason/Comments: intractable vertigo Do you want consulting provider notified?: Yes Primary care physician: Tyson Simon DO Hospital Course: Final diagnosis Dizziness with history of vertigo, BPPV History of diabetes mellitus, type II, non-insulin dependent History of depression Hypothyroidism history GI prophylaxis DVT prophylaxis Full code Discharge disposition Patient is being discharged in a stable condition with guarded prognosis to home. Patient will follow-up with Dr. Simon in the outpatient setting upon discharge. Patient is to continue with meclizine 25 3 times a day as needed as well as neurology outpatient follow-up as scheduled. Patient also provided resources to follow-up with ENT outpatient. Total time taken is greater than 35 minutes. Hospital course This is a 73-year-old female who was recently admitted with increased dizziness and vertigo being closely monitored. Patient was evaluated by neurology underwent CT brain as well as angiography negative for acute process. CT brain did show old remote lacunar infarct noted on the left basal ganglia and patient denies or was not made aware of any type of CVA/TIA. Patient is being started on aspirin as well as managing lifestyle modifications. Patient will also be provided with resources for outpatient ENT follow-up and will be provided with meclizine as well as following up with neurology in the outpatient setting. Patient has been cleared by neurology for discharge home today. Please refer to neurology note for further HPI. Patient reports to feeling much improved and would like to go home. Currently no reports of chest pain, shortness of breath, or palpitations. Patient is afebrile. No reports of nausea or vomiting and patient is tolerating diet. Patient will be discharged home today. Physical exam: Gen: This is a 73-year-old female who is awake, alert and oriented 3, well- developed, well-nourished HEENT: Head is atraumatic, normocephalic. Pupils equal, round. Sclerae is anicteric. NECK: Supple. No JVD. No lymphadenopathy. No thyromegaly. LUNGS: Clear to auscultation. No wheezes or rhonchi. No intercostal retractions. HEART: Regular rate and rhythm. No murmur. ABDOMEN: Soft. Bowel sounds are present. No masses. No tenderness. EXTREMITIES: No pedal edema. No calf tenderness. NEUROLOGICAL: Patient is awake, alert and oriented x3. Cranial nerves 2 through 12 are grossly intact. Please refer to medication reconciliation sheet for a list of medications. The impression and plan of care has been dictated by Mel Reeves, Nurse Practitioner as directed. Dr. Rogelio MD I have performed a history and examination and MDM of this patient, discussed the same with the dictator, and agree with the dictator's assessment and plan as written ,documented as a scribe. Based on total visit time, I have performed more than 50% of the visit. Patient Condition at Discharge: Stable Plan - Discharge Summary New Discharge Prescriptions: New Meclizine [Antivert] 25 mg PO TID PRN #30 tab PRN Reason: Vertigo Aspirin 81 mg PO DAILY #30 tab Continue Latanoprost [Xalatan 0.005%] 1 drop BOTH EYES HS metFORMIN HCL [Glucophage] 500 mg PO BID #60 tab Insulin Glargine,Hum.rec.anlog [Lantus Solostar Pen] 15 units SQ HS Discontinued Meclizine [Antivert] 25 mg PO TID PRN PRN Reason: DIZZINESS OR NAUSEA Discharge Medication List Latanoprost [Xalatan 0.005%] 1 drop BOTH EYES HS 11/19/21 [History] metFORMIN HCL [Glucophage] 500 mg PO BID #60 tab 08/24/23 [Rx] Insulin Glargine,Hum.rec.anlog [Lantus Solostar Pen] 15 units SQ HS 09/14/23 [History] Aspirin 81 mg PO DAILY #30 tab 09/15/23 [Rx] Meclizine [Antivert] 25 mg PO TID PRN #30 tab 09/15/23 [Rx] Follow up Appointment(s)/Referral(s): Tyson Simon DO [Primary Care Provider] - 1-2 days David Martin MD [STAFF PHYSICIAN] - 1 Week Patient Instructions/Handouts: Dizziness (ED) Activity/Diet/Wound Care/Special Instructions: Activity Limited until follow-up Continue taking Antivert as needed Follow-up with ENT outpatient Follow-up primary care provider on discharge Discharge Disposition: HOME SELF-CARE
== END 2023-09-15 13:18 | disposition home or self-care (01) ==
LOC: EC 13:37 → 6NMEDSUR 17:23
PROVIDERS: ADMIT Hospitalist; ATTEND Hospitalist
DX: H81.10 Benign paroxysmal vertigo, unspecified ear (principal); H91.91 Unspecified hearing loss, right ear; E03.9 Hypothyroidism, unspecified; E11.9 Type 2 diabetes mellitus without complications; F32.A Depression, unspecified; Z86.73 Personal history of transient ischemic attack (TIA), and cerebral infarction without residual deficits; Z79.4 Long term (current) use of insulin; Z79.82 Long term (current) use of aspirin; Z79.84 Long term (current) use of oral hypoglycemic drugs; Z79.899 Other long term (current) drug therapy
CPT/HCPCS: 99285; 36415; 93005; 80053; 83735 ×2; 84484; 85025; 85610 ×2; 85730; 71046; 70496; 70450; 70498; G0378 ×2; J2765; J3360; Q9967

== ENCOUNTER 2025-05-24 11:57 | Emergency (ER) | payer MEDICARE ==
[2025-05-24 12:06] VITALS: PULSE 64; TEMP 97.5
[2025-05-24 12:33] LABS: Glucose,Whole Blood 130 mg/dL (70-110)
[2025-05-24] MEDS: ONDANSETRON ODT 4 MG TAB PO STA (12:37)
--- NOTE | 2025-05-24 12:42 | ED ---
General Adult HPI - General Chief complaint: Syncope Stated complaint: Near syncope Time Seen by Provider: 05/24/25 12:17 Source: patient, EMS Mode of arrival: EMS - History of Present Illness Initial comments: 75-year-old female past ministry of diabetes, thyroid disorder who [place] emergency department from a restaurant. Patient states that she has daily issues with vertigo to where she takes meclizine 4 times a day. States that when she got to the restaurant she began feeling extremely dizzy as if the room was spinning on her. She called EMS. They report that her blood glucose was 66. She agreed to be transported to the hospital however refused all interventions recommended to her by them. Upon arrival to the emergency department she states that this is not a typical from her daily episodes. She was referred to an ENT however they do not take her insurance. Patient admits to feeling nauseated without vomiting. She denies any headaches. No visual changes. No chest pain or difficulty breathing. No recent changes to her medications. No other alleviating, precipitating modifying factors - Related Data Home Medications Medication Instructions Recorded Confirmed Latanoprost [Xalatan 0.005%] 1 drop BOTH EYES HS 11/19/21 09/14/23 Insulin Glargine,Hum.rec.anlog 15 units SQ HS 09/14/23 09/14/23 [Lantus Solostar Pen] Previous Rx's Medication Instructions Recorded metFORMIN HCL [Glucophage] 500 mg PO BID #60 tab 08/24/23 Aspirin 81 mg PO DAILY #30 tab 09/15/23 Meclizine [Antivert] 25 mg PO TID PRN #30 tab 09/15/23 Allergies Allergy/AdvReac Type Severity Reaction Status Date / Time fluoxetine [From Prozac] AdvReac Nausea & Verified 09/14/23 17:19 Vomiting & Diarrhea Review of Systems ROS Statement: Those systems with pertinent positive or pertinent negative responses have been documented in the HPI. ROS Other: All systems not noted in ROS Statement are negative. Past Medical History Past Medical History: Diabetes Mellitus, Thyroid Disorder Additional Past Medical History / Comment(s): Type 2 DM History of Any Multi-Drug Resistant Organisms: None Reported Past Surgical History: Appendectomy, Hysterectomy, Tonsillectomy Past Anesthesia/Blood Transfusion Reactions: No Reported Reaction Past Psychological History: Depression Smoking Status: Never smoker Past Alcohol Use History: None Reported Past Drug Use History: None Reported General Exam General appearance: alert, in no apparent distress Head exam: Present: atraumatic, normocephalic, normal inspection Eye exam: Present: normal appearance, PERRL, EOMI. Absent: scleral icterus, conjunctival injection, periorbital swelling ENT exam: Present: normal exam, mucous membranes moist Neck exam: Present: normal inspection. Absent: tenderness, meningismus, lymphadenopathy Respiratory exam: Present: normal lung sounds bilaterally. Absent: respiratory distress, wheezes, rales, rhonchi, stridor Cardiovascular Exam: Present: regular rate, normal rhythm, normal heart sounds. Absent: systolic murmur, diastolic murmur, rubs, gallop, clicks GI/Abdominal exam: Present: soft, normal bowel sounds. Absent: distended, tenderness, guarding, rebound, rigid Extremities exam: Present: normal inspection, full ROM, normal capillary refill. Absent: tenderness, pedal edema, joint swelling, calf tenderness Back exam: Present: normal inspection Neurological exam: Present: alert, oriented X3, CN II-XII intact Psychiatric exam: Present: normal affect, normal mood Skin exam: Present: warm, dry, intact, normal color. Absent: rash Course Vital Signs 05/24/25 05/24/25 11:58 12:38 Temperature 97.5 F L Pulse Rate 64 64 Respiratory 18 16 Rate Blood Pressure 148/90 160/84 O2 Sat by Pulse 97 96 Oximetry Medical Decision Making - Medical Decision Making Was pt. sent in by a medical professional or institution (, PA, [employer]ICAL [employer]MINISTR[employer], urgent care, hospital, or jail...) When possible be specific @ -No Did you speak to anyone other than the patient for history (EMS, parent, family, police, friend...)? What history was obtained from this source @ -Spoke with EMS for history Did you review nursing and triage notes (agree or disagree)? Why? @ -I reviewed and agree with nursing and triage notes Were old charts reviewed (outside hosp., previous admission, EMS record, old EKG, old radiological studies, urgent care reports/EKG's, jail records)? Report findings @ -No old charts were reviewed Differential Diagnosis (chest pain, altered mental status, abdominal pain women, abdominal pain men, vaginal bleeding, weakness, fever, dyspnea, syncope, headache, dizziness, GI bleed, back pain, seizure, CVA, palpatations, mental health, musculoskeletal)? @ -Differential Dizziness: Benign paroxysmal positional Vertigo, Meniere's disease, otitis media, acoustic neuroma, vertebrobasilar insufficiency, cerebellar stroke, encephalitis, hypovolemic, arrhythmia, coronary artery syndrome, anemia, this is not meant to be an all-inclusive list EKG interpreted by me (3pts min.). @ -Not done X-rays interpreted by me (1pt min.). @ -None done CT interpreted by me (1pt min.). @ -None done U/S interpreted by me (1pt. min.). @ -None done What testing was considered but not performed or refused? (CT, X-rays, U/S, labs)? Why? @ -Laboratory studies, EKG, CT brainpatient refused What meds were considered but not given or refused? Why? @ -None Did you discuss the management of the patient with other professionals (professionals i.e. , PA, [employer] WORK[employer], lab, RT, psych nurse, drug abuse social worker, candy depositing machine operator, teacher, tactical response group officer, case finisher)? Give summary @ -No Was smoking cessation discussed for >3mins.? @ -No Was critical care preformed (if so, how long)? @ -No Were there social determinants of health that impacted care today? How? (Homelessness, low income, unemployed, alcoholism, drug addiction, transportation, low edu. Level, literacy, decrease access to med. care, snf, rehab)? @ -No Was there de-escalation of care discussed even if they declined (Discuss DNR or withdrawal of care, Hospice)? DNR status @ -No What co-morbidities impacted this encounter? (DM, HTN, Smoking, COPD, CAD, Cancer, CVA, ARF, Chemo, Hep., AIDS, mental health diagnosis, sleep apnea, morbid obesity)? @ -Vertigo, diabetes mellitus Was patient admitted / discharged? Hospital course, mention meds given and route, prescriptions, significant lab abnormalities, going to OR and other pertinent info. @ -Upon arrival patient seen and evaluated in bed 20. Thorough history and p hysical exam was performed. Patient is reporting to typical vertiginous symptoms and therefore is refusing all type of workup. We did recommend the patient take a Zofran for her nausea and drink some juice for her low glucose reading. Patient originally does refuse however becomes agreeable. She does have a blood glucose of 130 which was before any medication or food administration. Patient is alert and oriented x 3. She does have capacity to refuse testing at this time. She is aware of the risks of leaving including permanent disability and even . Patient is willing to accept these risks. We did recommend that she follow-up with her primary care doctor. Return for any new or worsening symptoms. Patient discharged against medical advice Undiagnosed new problem with uncertain prognosis? @ -yes Drug Therapy requiring intensive monitoring for toxicity (Heparin, Nitro, Insulin, Cardizem)? @ -No Were any procedures done? @ -No Diagnosis/symptom? @ -acute/chronic vertigo Acute, or Chronic, or Acute on Chronic? @ -Acute on chronic Uncomplicated (without systemic symptoms) or Complicated (systemic symptoms)? @ -Complicated Side effects of treatment? @ -No Exacerbation, Progression, or Severe Exacerbation? @ -No Poses a threat to life or bodily function? How? (Chest pain, [place], [place], pneumonia, PE, COPD, DKA, ARF, appy, cholecystitis, CVA, Diverticulitis, Homicidal, Suicidal, threat to staff... and all critical care pts) @ -No - Lab Data Lab Results 05/24/25 Range/Units 12:29 POC Glucose (mg/dL) 130 H (70-110) mg/dL POC Glu [place] Analyst ID Ranjeet Davis Disposition Clinical Impression: Syncope, near Disposition: LEFT AGAINST MEDICAL ADVICE Condition: Stable Instructions (If sedation given, give patient instructions): Dizziness (ED) Additional Instructions: We recommended further workup. You are leaving without any recommended testing and are aware of the risks of leaving. Please do not drive if you do not feel well. Is patient prescribed a controlled substance at d/c from ED?: No Referrals: Tyson Simon DO [Primary Care Provider] - 1-2 days Time of Disposition: 12:42
[2025-05-24 12:46] VITALS: BP 160/84; RESP 16
== END 2025-05-24 13:42 | disposition left against medical advice (07) ==
LOC: EC 11:57
DX: R55 Syncope and collapse (principal); E11.9 Type 2 diabetes mellitus without complications; Z88.8 Allergy status to other drugs, medicaments and biological substances
CPT/HCPCS: 36415; 99284